=== PATIENT | female | born 1950 | race Caucasian/White ===

== ENCOUNTER 2017-01-10 08:36 | Day surgery (SDC) | payer OTHER ==
[2017-01-09 15:26] VITALS: BMI 30.3
[2017-01-10 09:14] LABS: INR 1.04 (0.82-1.09); PROTHROMBIN TIME (PATIENT) 11.4 SEC (9.98-11.88)
[2017-01-10 09:24] VITALS: TEMP 98.2
[2017-01-10 14:38] VITALS: BP 163/75; PULSE 70
--- NOTE | 2017-01-23 11:42 | PATH ---
Surgical Pathology Report Patient Name: FRANDY COLVIN [facility]. Rec. #: [id number] /Age/Gender: 1950 (Age: 66) / F Account: [id number] Location: RADIOLOGY Taken: 01/10/2017 Received: 01/10/2017 Reported: 01/23/2017 Physicians: Chavez Johnson M.D. Specimen(s) Received RIGHT LUNG CORE BIOPSY Clinical History 66 yo female with multiple large lung masses Final Diagnosis LUNG, RIGHT LOWER LOBE, CT GUIDED CORE BIOPSY: DENSE LYMPHOID INFILTRATE IN FIBROTIC BACKGROUND (SEE COMMENT). Comment: The biopsy shows dense lymphoid infiltrate in fibrotic background along with a fragment of lung parenchyma. The lymphocytes are predominantly small. The findings are suspicious for a lymphoproliferative process involving the lung; however, definitive B-cell clonality could not be proven. Additional tissue sampling with wedge biopsy would be beneficial to establish the diagnosis. Immunohistochemical stains for CD3 and CD20 show the lymphoid cells comprised of a mixed population of T- and B- cells with a slight predominance of CD3+T-cells. Additional immunohistochemical stains show the following: PAX5 highlights B-cells, CD5, CD43 and BCL-2 highlight T-cells. Staining for CD10, BCL-6 and CD21 shows scant focal positivity suggestive of portions of germinal center; however, the tissue is largely exhausted at this levels. A stain for Cyclin-D1 is negative on lymphocytes. A stain for Ae1/Ae3 keratin highlights focal pulmonary epithelial cells. In situ hybridization for Campti and Lambda light chains was not conclusive. B-cell gene rearrangement analysis was attempted at [place], [place] ([id number]); however, B-cell clonality could not be proven; the material was largely exhausted. This case was also seen in consultation with hematopathology service at [place], [place] ([id number], Dr. Mendiola); the consultants opinion was "limited specimen with no definite evidence of lymphoma". Immunohistochemical stains for CD3, CD20 and Ae1/Ae3 more performed and interpreted at [facility]; additional immunohistochemical stains for PAX5, CD5, CD43, BCL2, BCL6, CD10, CD21, and Cyclin-D1 were performed and interpreted at [place], [place] ([id number]). This case was initially discussed with Dr. Lama. Electronically Signed Jose Cutler M.D. Gross Description Received in formalin labeled "right lung biopsy" are 5 orellana, cylindrical portions of soft tissue ranging from 0.5-1.9 cm in length and averaging 0.1 cm in diameter. The specimens are submitted in toto in one cassette. 01/10/201701/10/2017
== END 2017-01-10 14:35 | disposition home or self-care (01) ==
LOC: JRADIR 08:36
PROVIDERS: ATTEND Internal Medicine Pulmonary Disease
PROC: BB24YZZ Computerized Tomography (CT Scan) of Bilateral Lungs using Other Contrast (ICD-10-PCS; principal; 2017-01-10)
PROC: 0BBF3ZX Excision of Right Lower Lung Lobe, Percutaneous Approach, Diagnostic (ICD-10-PCS; 2017-01-10)
DX: D38.1 Neoplasm of uncertain behavior of trachea, bronchus and lung (principal)
CPT/HCPCS: 36415; 71020-TC; 77012-TC; 85610; 88305-TC; 88341-TC; 88342-TC

== ENCOUNTER 2017-03-06 06:04 | Inpatient (IN) | payer OTHER ==
[2017-03-01 13:50] VITALS: BMI 31.1
[2017-03-06] MEDS ORDERED: PROPOFOL 20 ML ONE (07:13)
[2017-03-06] MEDS ORDERED: MIDAZOLAM HCL 2 MG/2 ML SINGLE DOSE VIAL ONE (07:13)
[2017-03-06] MEDS ORDERED: ROCURONIUM BROMIDE 50 MG/5 ML VIAL ONE (07:13)
[2017-03-06] MEDS ORDERED: LIDOCAINE HCL/PF 2% SDV 5ML VIAL ONE (07:29)
[2017-03-06] MEDS ORDERED: ceFAZolin SODIUM 1 GM VIAL ONE (07:55)
[2017-03-06] MEDS ORDERED: ceFAZolin SODIUM 1 GM VIAL IVPB ONE (08:05)
[2017-03-06] MEDS ORDERED: BUPIVACAINE HCL/PF 0.25% (2.5MG/ML) 10 ML VIAL ONE ×2 (08:05→08:09)
[2017-03-06] MEDS ORDERED: DEXAMETHASONE SOD PHOSPHATE 4 MG/1 ML VIAL ONE (08:44)
[2017-03-06] MEDS ORDERED: LIDOCAINE 1%/EPI 1:100000 (50 ML MULTI DOSE VIAL) INF ONE ×2 (08:47)
[2017-03-06] MEDS ORDERED: BUPIVACAINE HCL/PF 0.25% (2.5MG/ML) 10 ML VIAL IJ ONE ×2 (08:47)
[2017-03-06] MEDS ORDERED: ACETAMINOPHEN INJECTION 100 ML IVPB ONE (09:05)
[2017-03-06] MEDS ORDERED: PHENYLEPHRINE HCL 10 MG/1 ML SINGLE DOSE VIAL ONE (09:13)
[2017-03-06] MEDS ORDERED: GLYCOPYRROLATE 0.2 MG/1 ML VIAL ONE (09:53)
[2017-03-06] MEDS ORDERED: NEOSTIGMINE METHYLSULFATE 0.5 MG/ML - 10 ML MDV ONE (09:53)
[2017-03-06] MEDS ORDERED: PROMETHAZINE HCL 25 MG/1 ML VIAL IVPB PRN (10:32)
[2017-03-06] MEDS ORDERED: ONDANSETRON 4 MG/2 ML VIAL IVPUSH PRN (10:32)
[2017-03-06] MEDS ORDERED: DEXAMETHASONE SOD PHOSPHATE 4 MG/1 ML VIAL IVPUSH PRN (10:32)
[2017-03-06] MEDS ORDERED: LACTATED RINGERS SOLUTION 1,000 ML IV SCH ×2 (10:45→19:39)
[2017-03-06] MEDS ORDERED: HYDROmorphone *PCA* 10MG/50ML DISP.SYRIN PCA SCH (10:45)
[2017-03-06] MEDS ORDERED: HYDROmorphone *PCA* 10MG/50ML DISP.SYRIN PCA ONE (11:00)
--- NOTE | 2017-03-06 11:54 | OP ---
Operative Note - Note: Operative Date: 03/06/17 Pre-Operative Diagnosis: Lung nodules Operation: Bronchoscopy, right vats, pneumolysis, wedge resection, intercostal nerve block Findings: Bronchoscopy: Normal anatomy; Thoracoscopy: adhesions of right upper lobe to chest, right lower lobe to diaphragm, multiple central nodules--largest in right lower lobe samples with wedge resection. Post-Operative Diagnosis: Same as Pre-op Surgeon: Liam López [employer] Worker: Dimas Lincoln Anesthesiologist/MECHANICAL OXIDIZER: David Anders Anesthesia: General Specimens Removed: right lower lobe wedge Estimated Blood Loss (mls): 20 Drains & Tubes with Location: chest tube Operative Report Dictated: Yes
--- NOTE | 2017-03-06 15:38 | OPR ---
Patient Name: Yakelin Herndon MR#: [id number] Procedure Date: 03/06/2017 Preoperative Diagnosis: Right lung nodules Postoperative Diagnosis: same Procedure: 1. Bronchoscopy; 2. Right VATS pneumolysis; 3. Right lower lobe wedge resection; 4. Intercostal nerve block. Indication: Diagnosis. Surgeon(s): Liam López MD Cosurgeon: Dimas Lincoln MD Internet Consultant Surgeon: na Anesthesia: General with intercostal nerve black. Findings: 1. Bronchoscopy: Normal; 2. VATS: RUL adherent to chest wall; RLL adherent to diaphragm; Large deep nodules throughout lung. Specimens Sent: RLL wedge for frozen/path/culture; Right bronchial washings for culture. Complications: none Drains / Tubes / Catheters: 1 chest tubes. Hardware / Implants: na Blood / Fluid Losses: 20cc. Post-Operative Condition: Hemodynamically stable in transfer to PACU Indications: This patient is a 66 year-old female smoker who presented with dyspnea on exertion and multiple pulmonary nodules. Initial CT guided core biopsy suggested a lymphoproliferative process. She was referred by Dr. Partida for diagnostic resection. After discussion and consideration of risks, benefits , and alternatives with the patient she agreed to the procedure. The patient understood the risks and benefits. Details of Procedure: The patient was taken into the operating room and placed supine on the table. She was monitored with pulse oximetry and blood pressure monitoring. She was given sedation and then intubated. Preoperative antibiotics were given. I then performed a bronchoscopy. Findings are listed above. A double-lumen was then placed. Subcutaneous heparin and antibiotics were given. Next we positioned. Her right chest was prepared and draped in standard surgical fashion. The first port was placed in the anterior axillary line 6th intercostal space. A posterior and anterior access port were then created. A pneumolysis was performed of a RUL adhesion to the chest wall and the RLL adhesion to the diaphragm. We then identified several lesions. All required very deep wedge resections. The largest lesion was in the right lower lobe. We divided the inferior pulmonary ligament and then prepared to wedge resect using the black- load stapler. We then removed the lesion with a bag. We obtained hemostasis. The chest was irrigated with warm water. There was no air-leak on inflation of the lung. We then performed an intercostal nerve block using lidocaine and bupivicane from the 3rd interspace to the 8th interspace. Hemostasis was then checked again. Next we placed a chest tube and secured it. The incisions were closed and dressings were placed. She was extubated and transferred to the PACU in hemodynamically stable condition. Dr. Lincoln was present throughout the procedure and was necessary as there was no qualified help available. He was instrumental in organizing the placement of ports and assisting during the wedge -resection and we were both available postoperatively.
--- NOTE | 2017-03-06 16:07 | CONSULT ---
Consultation: REQUESTING PROVIDER: CONSULT REQUEST: We have been asked to medically evaluate this patient for ICU care PCP: Dr. Castano Pulmonary: Dr. Kirk Heme/Onco: Dr. Partida HISTORY OF PRESENT ILLNESS: Patient is a 66 year old female with significant past medical hx of HTN, DM, HLD , recently diagnosed with lung mass presented to the ED for an elective right lower lobe wedge resection today. Patient was transferred from the OR for further care in the ICU. Patient has mild pain at the chest tube insertion site , controlled with MOLDED GOODS CONTROLS OPERATOR hydromorphone and now hemodynamically stable. As per the patient, she had a mechanical fall in December, for which she had a chest xray done to r/o rib fracture, was found to have lung nodule, CT chest was done on 01/05/17 which showed Multiple masses and nodules in the lung, largest seen in the right lung base measuring 3.9 x 2.7 cm with a spiculated margin; Right paratracheal lymph node measuring 1.3 x 1 cm. Patient has always been asymptomatic. Denies chest pain, sob, palpitations, cough, abdominal pain, nausea or vomiting. Bowel/Bladder habit normal. Sleep/Appetite normal. Past medical hx: HTN, DM, HLD, recently diagnosed with lung mass Allergies: Halothane, Az[place], sulfite Surgical hx: Thyroidectomy Social: Quit smoking 3 months ago, smoked for over 40 years, 1 Pack per day Alcohol occasional; Drugs-denies REVIEW OF SYSTEMS: CONSTITUTIONAL: Absent: fever, chills, diaphoresis, generalized weakness, malaise, loss of appetite, weight change HEENT: Absent: rhinorrhea, nasal congestion, throat pain, throat swelling, difficulty swallowing, mouth swelling, ear pain, eye pain, visual changes CARDIOVASCULAR: Absent: chest pain, syncope, palpitations, irregular heart rate, lightheadedness , peripheral edema RESPIRATORY: Absent: cough, shortness of breath, dyspnea with exertion, orthopnea, wheezing, stridor, hemoptysis GASTROINTESTINAL: Absent: abdominal pain, abdominal distension, nausea, vomiting, diarrhea, constipation, melena, hematochezia GENITOURINARY: Absent: dysuria, frequency, urgency, hesitancy, hematuria, flank pain, genital pain MUSCULOSKELETAL: Absent: myalgia, arthralgia, joint swelling, back pain, neck pain SKIN: Absent: rash, itching, pallor HEMATOLOGIC/IMMUNOLOGIC: Absent: easy bleeding, easy bruising, lymphadenopathy, frequent infections ENDOCRINE: Absent: unexplained weight gain, unexplained weight loss, heat intolerance, cold intolerance NEUROLOGIC: Absent: headache, focal weakness or paresthesias, dizziness, unsteady gait, seizure, mental status changes, bladder or bowel incontinence PSYCHIATRIC: Absent: anxiety, depression, suicidal or homicidal ideation, hallucinations. PHYSICAL EXAMINATION Vital Signs - 24 hr 03/06/17 03/06/17 03/06/17 06:35 06:36 10:27 Temperature 98.3 F 97.7 F Pulse Rate 62 69 Respiratory 20 22 Rate Blood Pressure 112/63 126/83 O2 Sat by Pulse 97 100 Oximetry (%) 03/06/17 03/06/17 03/06/17 10:45 11:00 11:15 Temperature Pulse Rate 62 61 61 Respiratory 17 17 14 Rate Blood Pressure 129/63 122/58 124/63 O2 Sat by Pulse 98 98 99 Oximetry (%) 03/06/17 03/06/17 03/06/17 11:30 11:31 11:45 Temperature Pulse Rate 61 61 62 Respiratory 14 14 17 Rate Blood Pressure 118/56 118/56 119/57 O2 Sat by Pulse 99 99 Oximetry (%) 03/06/17 03/06/17 03/06/17 12:00 12:15 12:30 Temperature Pulse Rate 60 60 59 L Respiratory 16 15 11 L Rate Blood Pressure 116/57 113/57 115/57 O2 Sat by Pulse 99 100 98 Oximetry (%) 03/06/17 03/06/17 03/06/17 12:45 13:00 13:15 Temperature Pulse Rate 60 62 62 Respiratory 10 L 18 16 Rate Blood Pressure 110/56 108/54 112/53 O2 Sat by Pulse 98 98 98 Oximetry (%) 03/06/17 03/06/17 03/06/17 13:30 13:45 14:00 Temperature Pulse Rate 67 67 67 Respiratory 20 17 20 Rate Blood Pressure 120/58 118/60 120/61 O2 Sat by Pulse 98 99 99 Oximetry (%) 03/06/17 03/06/17 14:15 14:30 Temperature 97.5 F L Pulse Rate 65 60 Respiratory 20 18 Rate Blood Pressure 118/54 122/60 O2 Sat by Pulse 99 Oximetry (%) GENERAL: Patient is comfortably laying in bed, Awake, alert, and fully oriented , in no acute distress, right chest tube in place, arce in place. HEAD: Normal with no signs of trauma. EYES: Pupils equal, round and reactive to light, extraocular movements intact, sclera anicteric, conjunctiva clear. No lid lag. EARS, NOSE, THROAT: Ears normal. Moist mucous membranes. NECK: Supple. LUNGS: Poor inspiratory effort, Decreased breath sounds on the right; No wheezes , and no crackles. No accessory muscle use. HEART: Regular rate and rhythm, normal S1 and S2 without murmur. ABDOMEN: Soft, nontender, not distended, normoactive bowel sounds, no guarding, no rebound, no masses. No hepatomegaly or splenomegaly. MUSCULOSKELETAL: Normal range of motion at all joints. No bony deformities or tenderness. No CVA tenderness. UPPER EXTREMITIES: 2+ pulses, warm, well-perfused. No cyanosis. No clubbing. Cap refill <2 seconds. No peripheral edema. LOWER EXTREMITIES: 2+ pulses, warm, well-perfused. No calf tenderness. No peripheral edema. NEUROLOGICAL: No facial droop, Cranial nerves II-XII intact, reflexes normal, Normal speech. Gait not observed. PSYCHIATRIC: Cooperative. Good eye contact. Appropriate mood and affect. SKIN: Warm, dry, normal turgor, no rashes or lesions noted. Laboratory Results - last 24 hr 03/06/17 03/06/17 06:47 13:17 POC Glucometer 124 165 Active Medications Generic Name Dose Route Start Last Admin Trade Name Freq PRN Reason Stop Dose Admin Dexamethasone Sodium Phosphate 4 mg 03/06/17 10:32 Decadron Injection - IVPUSH ONCE PRN NAUSEA AND/OR VOMITING Diphenhydramine HCl 12.5 mg 03/06/17 10:32 Benadryl Injection - IVPUSH ONCE PRN FOR ITCHING Docusate Sodium 100 mg 03/06/17 14:00 Colace - PO TID MAXIMINO Heparin Sodium (Porcine) 5,000 unit 03/06/17 14:00 Heparin - SQ TID MAXIMINO Hydromorphone HCl 0 mg 03/06/17 10:45 03/06/17 11:31 Dilaudid Glaze Handler - MOLDED GOODS CONTROLS OPERATOR 03/13/17 10:33 10 mg MOLDED GOODS CONTROLS OPERATOR MAXIMINO Administration Protocol Lactated Ringer's 1,000 mls @ 125 mls/hr 03/06/17 10:45 Lactated Ringers Solution IV ASDIR MAXIMINO Ipratropium [place] 1 amp 03/06/17 14:00 Atrovent 0.02% Nebulizer - NEB TIDR MAXIMINO Ondansetron HCl 4 mg 03/06/17 10:32 Zofran Injection IVPUSH 03/06/17 22:33 Q4H PRN NAUSEA AND/OR VOMITING Promethazine HCl 12.5 mg 03/06/17 10:32 Phenergan Injection - IVPB Q6H PRN NAUSEA AND/OR VOMITING Senna 1 tab 03/06/17 22:00 Senna - PO HS [facility] ASSESSMENT/PLAN: Patient is a 66 year old female with significant past medical hx of HTN, DM, HLD , recently diagnosed with lung mass presented to the ED for an elective right lower lobe wedge resection today. Pulmonary Right lung nodule- r/o malignancy s/p Bronchoscopy, Right VATS pneumolysis, Right lower lobe wedge resection POD Day O Chest tube in place, monitor output Incentive spirometer as tolerated Albuterol PRN Ipratropium 1amp TID [facility] Cardiology Hypertension-controlled Resume home meds once she can take orally: Amlodipine/Valsartan Hyperlipidemia Continue statin once able to tolerate orally Endocrinology DM-HbA1c pending Insulin sliding scale Finger stick glucose monitoring Watch for hypoglycemic episodes Hypothyroidism s/p thyroidectomy Continue Levothyroxine once able to tolerate PO FEN IV LR @ 125 mls/hr Electrolytes to be repeated in AM NPO for now Prophylaxis For DVT: On Heparin sq For GI: Not indicated Code status: Full code Illness, Investigation and Plan of care explained to the patient and her . They verbalized understanding. Case discussed with Dr. López. Dispo: We will continue to follow the patient. Thank you for this consultative opportunity. Visit type - Emergency Visit Emergency Visit: Yes ED Registration Date: 03/06/17 Care time: The patient presented to the Emergency Department on the above date and was hospitalized for further evaluation of their emergent condition. - New Patient This patient is new to me today: Yes Date on this admission: 03/06/17 - Critical Care Critical Care patient: Yes Total Critical Care Time (in minutes): 35 Critical Care Statement: The care of this patient involved high complexity decision making to prevent further life threatening deterioration of the patient 's condition and/or to evaluate & treat vital organ system(s) failure or risk of failure.
[2017-03-06] MEDS: DOCUSATE SODIUM 100 MG CAPSULE (FP) PO SCH ×3 (16:56→21:28)
[2017-03-06] MEDS: HEPARIN NA (PORCINE) 5,000 UNITS/ML 1ML VIAL SQ SCH ×2 (16:56→21:22)
[2017-03-06] MEDS: IPRATROPIUM BR 0.02% 0.5 MG/2.5 ML VIAL.NEB. NEB SCH ×2 (16:57→22:30)
--- NOTE | 2017-03-06 18:44 | HP ---
Admitting History and Physical - Primary Care Physician PCP: Demetri Castano - Admission Chief Complaint: LUNG BIOPSY History of Present Illness: 66 Y/O FEMALE WITH HISTORY OF TOBACCO USE HERE FOR WEDGE LUNG BIOPSY WITH DR COLVIN. PATIENT HAS HISTORY OF HTN,LIPIDEMIA,OBESITY, RENAL CYSTS. History Source: Patient, Medical Record - Past Medical History Cardiovascular: Yes: HTN - Smoking History Smoking history: Current every day smoker Have you smoked in the past 12 months: Yes Aproximately how many cigarettes per day: 1 If you are a former smoker, when did you quit?: 01/05/17 - Alcohol/Substance Use Hx Alcohol Use: No Home Medications - Allergies Allergies/Adverse Reactions: Allergies Allergy/AdvReac Type Severity Reaction Status Date / Time halothane [Halothane] Allergy Unknown Verified 03/06/17 06:39 itraconazole [From Sporanox] Allergy Rash Verified 03/06/17 06:39 sulfite Allergy pass out Verified 03/06/17 06:39 - Home Medications Home Medications: Ambulatory Orders Atenolol [Tenormin -] 100 mg PO DAILY 03/31/14 Metformin HCl [Glucophage -] 500 mg PO HS 03/31/14 Alprazolam [Xanax] 0.5 mg PO ONCE PRN 01/09/17 Amlodipine/Valsartan/Hcthiazid [Exforge Hct 5-160-25 mg Tab] 1 each PO DAILY Atorvastatin Ca [Lipitor] 40 mg PO HS 01/09/17 Bupropion HCl [Wellbutrin -] 150 mg PO BID 01/09/17 Levothyroxine [Synthroid -] 150 mcg PO DAILY 01/09/17 Cyclosporine [Restasis] 1 each OP DAILY 03/01/17 Tiotropium Br/Olodaterol HCl [Stiolto Respimat Inhal [place]] 2 puff IH DAILY 04/09 Review of Systems - Review of Systems Constitutional: reports: Weakness Eyes: reports: No Symptoms HENT: reports: No Symptoms Neck: reports: No Symptoms Cardiovascular: reports: Shortness of Breath Respiratory: reports: Cough Gastrointestinal: reports: No Symptoms Genitourinary: reports: No Symptoms Musculoskeletal: reports: No Symptoms Integumentary: reports: No Symptoms Neurological: reports: No Symptoms Endocrine: reports: No Symptoms Hematology/Lymphatic: reports: No Symptoms Psychiatric: reports: No Symptoms Physical Examination Vital Signs: Vital Signs Temperature 98.8 F 03/06/17 16:52 Pulse Rate 69 03/06/17 16:52 Respiratory Rate 20 03/06/17 16:52 Blood Pressure 126/68 03/06/17 16:52 O2 Sat by Pulse Oximetry (%) 99 03/06/17 16:52 Findings/Remarks: S/P LUNG BIOPSY VATS Constitutional: Yes: Moderate Distress Eyes: Yes: WNL HENT: Yes: WNL Neck: Yes: WNL Cardiovascular: Yes: WNL Respiratory: Yes: On Nasal O2 Gastrointestinal: Yes: WNL Renal/: Yes: WNL Musculoskeletal: Yes: Muscle Weakness Extremities: Yes: WNL Edema: No Peripheral Pulses WNL: Yes Integumentary: Yes: WNL Wound/Incision: Yes: Clean/Dry Neurological: Yes: WNL ...Motor Strength: WNL Psychiatric: Yes: WNL Problem List - Problems (1) Hypertension Code(s): I10 - ESSENTIAL (PRIMARY) HYPERTENSION (2) Lung mass Code(s): R91.8 - OTHER NONSPECIFIC ABNORMAL FINDING OF LUNG FIELD (3) History of lung biopsy Code(s): Z98.890 - OTHER SPECIFIED POSTPROCEDURAL STATES (4) Tobacco use Code(s): Z72.0 - TOBACCO USE Assessment/Plan AWAIT BIOPSY RESULTS SMOKING CESSATION NICOTINE PATCH HTN CONTROL DVT PROPHYLAXIS FAMILY BEDSIDE INCENTIVE SPIROMETRY
[2017-03-06] MEDS ORDERED: ALBUTEROL SO4 0.083% IH SOL 2.5 MG/3 ML VIAL.NEB. NEB ONE (19:38)
--- NOTE | 2017-03-06 20:22 | CONSULT ---
Consult Consult Specialty:: Pulmonary Critical care Reason for Consultation:: Post VATS, RLL wedge resection - History Source History Provided By: Patient - Past Medical History Cardio/Vascular: Yes: HTN, Hyperlipdemia Renal/: Yes: Other (Renal cysts) Psych: Yes: Anxiety, Depression Endocrine: Yes: Diabetes Mellitus - Past Surgical History Additional Surgical History: thyroidectomy - Alcohol/Substance Use Hx Alcohol Use: No - Smoking History Smoking history: Current every day smoker Have you smoked in the past 12 months: Yes Aproximately how many cigarettes per day: 1 If you are a former smoker, when did you quit?: 01/05/17 Home Medications - Allergies Allergies/Adverse Reactions: Allergies Allergy/AdvReac Type Severity Reaction Status Date / Time halothane [Halothane] Allergy Unknown Verified 03/06/17 06:39 itraconazole [From Sporanox] Allergy Rash Verified 03/06/17 06:39 sulfite Allergy pass out Verified 03/06/17 06:39 - Home Medications Home Medications: Ambulatory Orders Atenolol [Tenormin -] 100 mg PO DAILY 03/31/14 Metformin HCl [Glucophage -] 500 mg PO HS 03/31/14 Alprazolam [Xanax] 0.5 mg PO ONCE PRN 01/09/17 Amlodipine/Valsartan/Hcthiazid [Exforge Hct 5-160-25 mg Tab] 1 each PO DAILY Atorvastatin Ca [Lipitor] 40 mg PO HS 01/09/17 Bupropion HCl [Wellbutrin -] 150 mg PO BID 01/09/17 Levothyroxine [Synthroid -] 150 mcg PO DAILY 01/09/17 Cyclosporine [Restasis] 1 each OP DAILY 03/01/17 Tiotropium Br/Olodaterol HCl [Stiolto Respimat Inhal [place]] 2 puff IH DAILY 04/09 Family Disease History - Family Disease History Family History: Unremarkable Review of Systems - Review of Systems Constitutional: reports: No Symptoms Eyes: reports: No Symptoms HENT: reports: No Symptoms Neck: reports: No Symptoms Cardiovascular: reports: No Symptoms Respiratory: reports: Cough Gastrointestinal: reports: No Symptoms Genitourinary: reports: No Symptoms Breasts: reports: No Symptoms Reported Integumentary: reports: No Symptoms Neurological: reports: No Symptoms Endocrine: reports: No Symptoms Hematology/Lymphatic: reports: No Symptoms Psychiatric: reports: Anxiety, Depression Physical Exam Vital Signs: Vital Signs Temperature 98.8 F 03/06/17 16:52 Pulse Rate 70 03/06/17 19:00 Respiratory Rate 25 H 03/06/17 19:00 Blood Pressure 129/60 03/06/17 19:00 O2 Sat by Pulse Oximetry (%) 99 03/06/17 16:52 Constitutional: Yes: Well Nourished, Calm, Obese Eyes: Yes: WNL HENT: Yes: WNL Neck: Yes: WNL, Supple, Trachea Midline Cardiovascular: Yes: Regular Rate and Rhythm, S1, S2 Respiratory: Yes: Regular, On Nasal O2, Other (coarse breath sounds Right lobed , chest tube to suction; draining serosang fluid) Gastrointestinal: Yes: WNL, Normal Bowel Sounds, Soft, Abdomen, Obese, Distention ...Rectal Exam: Yes: Deferred Renal/: Yes: Chopra Present Breast(s): Yes: WNL Musculoskeletal: Yes: WNL Extremities: Yes: WNL Edema: No Peripheral Pulses WNL: Yes Wound/Incision: Yes: Clean/Dry Neurological: Yes: Alert, Oriented ...Motor Strength: WNL Psychiatric: Yes: Alert, Oriented Labs: Intake & Output 03/06/17 03/06/17 03/06/17 07:59 15:59 23:59 Intake Total 1460 Output Total 1215 66 Balance 245 -66 Laboratory Last Values POC Glucometer 165 UNITS (()) 03/06/17 13:17 Current Medications Generic Name Dose Route Start Last Admin Trade Name Freq PRN Reason Stop Dose Admin Dexamethasone Sodium Phosphate 4 mg 03/06/17 10:32 Decadron Injection - IVPUSH ONCE PRN NAUSEA AND/OR VOMITING Diphenhydramine HCl 12.5 mg 03/06/17 10:32 Benadryl Injection - IVPUSH ONCE PRN FOR ITCHING Docusate Sodium 100 mg 03/06/17 22:00 03/06/17 21:28 Colace - PO Not Given TID [facility] Heparin Sodium (Porcine) 5,000 unit 03/06/17 14:00 03/06/17 21:22 Heparin - SQ 5,000 unit TID [facility] Administration Hydromorphone HCl 0 mg 03/06/17 10:45 03/06/17 11:31 Dilaudid Locomotive Crane Engineer - PAPER COLORER 03/13/17 10:33 10 mg PAPER COLORER MAXIMINO Administration Protocol Lactated Ringer's 1,000 mls @ 83 mls/hr 03/06/17 19:39 03/06/17 19:45 Lactated Ringers Solution IV 83 mls/hr ASDIR MAXIMINO Administration Insulin Aspart 0 vial 03/06/17 22:00 03/06/17 21:23 Novolog Vial Sliding Scale - SQ Not Given ACHS MAXIMINO Protocol Ipratropium [place] 1 amp 03/06/17 14:00 03/06/17 16:57 Atrovent 0.02% Nebulizer - NEB Not Given TIDR MAXIMINO Ondansetron HCl 4 mg 03/06/17 10:32 Zofran Injection IVPUSH 03/06/17 22:33 Q4H PRN NAUSEA AND/OR VOMITING Promethazine HCl 12.5 mg 03/06/17 10:32 Phenergan Injection - IVPB Q6H PRN NAUSEA AND/OR VOMITING Senna 1 tab 03/06/17 22:00 03/06/17 21:28 Senna - PO Not Given HS MAXIMINO Imaging - Results Chest X-ray: Report Reviewed, Image Reviewed (Right lobe chest tube, no evidence of pneumothorax) Problem List - Problems (1) History of lung biopsy Code(s): Z98.890 - OTHER SPECIFIED POSTPROCEDURAL STATES (2) Lung mass Code(s): R91.8 - OTHER NONSPECIFIC ABNORMAL FINDING OF LUNG FIELD (3) Tobacco use Code(s): Z72.0 - TOBACCO USE (4) Blurry vision, bilateral Code(s): H53.8 - OTHER VISUAL DISTURBANCES (5) Hypertension Code(s): I10 - ESSENTIAL (PRIMARY) HYPERTENSION Assessment/Plan Ms. Herndon is a 66 y.o woman with newly diagnosed lung mass who is POD 0 for elective right lobe wedge resection; admitted to ICU for post-operative observation and care. -supplemental O2 for goal sat >92% -chest tube to 20cm suction -IS hourly, early ambulation -pain management with hydromorphone PAPER COLORER; pain currently well-controlled -fingersticks, SSI -bowel reg -continue home meds (statin, wellbutrin, amlodipine, valsartan) -sleep hygiene XIN Garza Critical Care Time/MDM Note Total Critical Care Time: 36 Critical Care Statement: The care of this patient involved high complexity decision making to prevent further life threatening deterioration of the patient 's condition and/or to evaluate & treat vital organ system(s) failure or risk of failure.
[2017-03-06] MEDS ORDERED: HEPARIN NA (PORCINE) 5,000 UNITS/ML 1ML VIAL ONE (21:15)
[2017-03-06] MEDS: INSULIN SLIDING SCALE (NOVOLOG) 1 VIAL SQ SCH (21:23)
[2017-03-06] MEDS ORDERED: SENNOSIDES 8.6MG TABLET (FP) PO SCH ×2 (22:00)
[2017-03-07] MEDS: HEPARIN NA (PORCINE) 5,000 UNITS/ML 1ML VIAL SQ SCH ×3 (05:27→21:15)
[2017-03-07] MEDS: DOCUSATE SODIUM 100 MG CAPSULE (FP) PO SCH ×3 (05:27→21:15)
[2017-03-07] MEDS ORDERED: IPRATROPIUM BR 0.02% 0.5 MG/2.5 ML VIAL.NEB. NEB SCH (06:00)
[2017-03-07] MEDS: INSULIN SLIDING SCALE (NOVOLOG) 1 VIAL SQ SCH ×4 (06:29→21:18)
[2017-03-07 06:31] LABS: MCH 21.1 pg (25.7-33.7); MCHC 32.4 g/dl (32.0-36.0); MEAN CELL VOLUME 65.2 fl (80-96); MEAN PLT VOLUME 9.8 fl (7.5-11.1); PLATELET COUNT 173 K/MM3 (134-434); RDW 15.6 % (11.6-15.6); WHITE BLOOD COUNT 10.6 K/mm3 (4.0-10.0)
[2017-03-07 07:06] LABS: ALBUMIN 3.2 g/dl (3.4-5.0); ANION GAP 7 (8-16); CALCIUM 8.5 mg/dL (8.5-10.1); CO2 32 mmol/L (21-32); CREATININE 0.7 mg/dL (0.55-1.02); GLUCOSE,RANDOM 120 mg/dL (74-106); MAGNESIUM 1.7 mg/dL (1.8-2.4); PHOSPHOROUS 3.9 mg/dL (2.5-4.9); SGOT/AST 23 U/L (15-37); SGPT/ALT 30 U/L (12-78)
[2017-03-07 07:07] LABS: ALK PHOS 76 U/L (45-117); BILIRUBIN,TOTAL 1.4 mg/dL (0.2-1.0); TOT PROT 6.3 g/dl (6.4-8.2)
[2017-03-07] MEDS ORDERED: LEVOTHYROXINE NA 75 MCG TABLET (FP) PO SCH (08:45)
[2017-03-07] MEDS ORDERED: MAGNESIUM OXIDE 400 MG TABLET (FP) PO ONE (09:00)
--- NOTE | 2017-03-07 09:05 | PN ---
Progress Note (short form) - Note Progress Note: Post op day#1.S/p Right VATS with wedge resection of RLL and lysis of adhesions under GA uneventful.P 70.BP128/65 and Spo2 (85 on O2 3L NC.Patient stable on Dilaudid FOOD BEVERAGE ATTENDANT c/o Pain score of 3-4/10.Will Dc FOOD BEVERAGE ATTENDANT and put patient PRN pain medication.No any anesthesia related problem.Patient DC from the anesthesia care.
[2017-03-07] MEDS ORDERED: ACETAMINOPHEN 500 MG TABLET (FP) PO PRN (09:07)
[2017-03-07] MEDS ORDERED: POTASSIUM CHLORIDE TABS 20 MEQ TABLET.ER (FP) PO ONE (09:10)
[2017-03-07 09:28] LABS: HYPOCHROMIA 1+; MICROCYTOSIS FEW; TEAR DROP CELLS RARE
[2017-03-07] MEDS ORDERED: NAPH,MB-DB/K PH,MBDB POWDER PACKET PO SCH ×2 (10:00→22:00)
[2017-03-07] MEDS ORDERED: ATENOLOL 50 MG TABLET (FP) PO SCH (10:00)
[2017-03-07] MEDS ORDERED: amLODIPine BESYLATE 5 MG TABLET (FP) PO SCH (10:00)
[2017-03-07] MEDS ORDERED: VALSARTAN 160 MG TABLET (UD) PO SCH (10:00)
[2017-03-07] MEDS ORDERED: buPROPion HCL 75 MG TABLET PO SCH (10:00)
--- NOTE | 2017-03-07 11:26 | PN ---
Progress Note (short form) - Note Progress Note: Oncology Note: Ms. Herndon is a 66 y.o woman with newly diagnosed lung mass and multiple lung masses, who intially inderwent a needle biopsy and no diagnosis was made, lymphoid aggregates present , but no definitive diagnosis made, Patient now admitted for elective right lobe wedge resection/VATS on 03/06/2017. Patient seen and examined. She is up in a chair , with no breathing difficulty. Chest tube still in. O/E: sitting up in the chair in no acute distress No LAD in the neck Cor: RRR Lungs: + chest tube present. No LE swelling seen AAOx3 Temp Pulse Resp BP Pulse Ox 98.9 F 64 21 130/59 100 03/07/17 10:00 03/07/17 10:00 03/07/17 10:00 03/07/17 10:00 03/07/17 08:00 CBC, BMP 03/07/17 05:15 03/07/17 05:15 Current Medications Generic Name Dose Route Start Last Admin Trade Name Freq PRN Reason Stop Dose Admin Acetaminophen 1,000 mg 03/07/17 09:07 Tylenol - PO Q6H PRN FEVER OR PAIN Amlodipine Besylate 5 mg 03/07/17 10:00 03/07/17 10:16 Norvasc - PO 5 mg DAILY [facility] Administration Atenolol 100 mg 03/07/17 10:00 03/07/17 10:16 Tenormin - PO 100 mg DAILY [facility] Administration Atorvastatin Calcium 40 mg 03/07/17 22:00 Lipitor - PO HS MAXIMINO Bupropion HCl 150 mg 03/07/17 10:00 03/07/17 10:17 Wellbutrin - PO 150 mg BID [facility] Administration Dexamethasone Sodium Phosphate 4 mg 03/06/17 10:32 Decadron Injection - IVPUSH ONCE PRN NAUSEA AND/OR VOMITING Diphenhydramine HCl 12.5 mg 03/06/17 10:32 Benadryl Injection - IVPUSH ONCE PRN FOR ITCHING Docusate Sodium 100 mg 03/06/17 22:00 03/07/17 05:27 Colace - PO 100 mg TID [facility]INO Administration Heparin Sodium (Porcine) 5,000 unit 03/06/17 14:00 03/07/17 05:27 Heparin - SQ 5,000 unit TID [facility] Administration Hydromorphone HCl 1 mg 03/07/17 09:06 Dilaudid Injection - IVPUSH 03/08/17 09:05 Q4H PRN PAIN Insulin Aspart 0 vial 03/06/17 22:00 03/07/17 10:43 Novolog Vial Sliding Scale - SQ Not Given ACHS MAXIMINO Protocol Ipratropium [place] 1 amp 03/07/17 06:00 03/07/17 06:30 Atrovent 0.02% Nebulizer - NEB 1 amp TIDR [facility] Administration Levothyroxine Sodium 150 mcg 03/07/17 08:45 03/07/17 10:15 Synthroid - PO 150 mcg DAILY@0700 [facility] Administration Potassium Phos/Sodium Phos 1 packet 03/07/17 10:00 03/07/17 10:16 Phos-Nak Packet - PO 03/07/17 22:01 1 packet BID [facility] Administration Promethazine HCl 12.5 mg 03/06/17 10:32 Phenergan Injection - IVPB Q6H PRN NAUSEA AND/OR VOMITING Senna 1 tab 03/06/17 22:00 03/06/17 21:28 Senna - PO Not Given HS [facility]IMINO Valsartan 160 mg 03/07/17 10:00 03/07/17 10:16 Diovan - PO 160 mg DAILY [facility] Administration Ms. Herndon is a 66 y.o woman with newly diagnosed lung mass and multiple lung masses, who intially inderwent a needle biopsy and no diagnosis was made, lymphoid aggregates present , but no definitive diagnosis made, Patient now admitted for elective right lobe wedge resection/VATS on 03/06/2017. -will follow up on final pathology -post surgical care in the ICU appreciated -to be followed up in our office. -encouraged to continue smoking cessation
--- NOTE | 2017-03-07 12:02 | PN ---
Teaching Attending Note Name of Resident: Sabino Coronado ATTENDING PHYSICIAN STATEMENT I saw and evaluated the patient. I reviewed the resident's note and discussed the case with the resident. I agree with the resident's findings and plan as documented. SUBJECTIVE: Feels OK today. Some discomfort at the CT site. No air leak noted. CXR : CT intact / no PTX Intake & Output 03/04/17 03/05/17 03/06/17 03/07/17 23:59 23:59 23:59 23:59 Intake Total 1460 1476 Output Total 1781 944 Balance -321 532 Last Vital Signs Temp Pulse Resp BP Pulse Ox 98.9 F 68 24 132/59 100 03/07/17 10:00 03/07/17 10:00 03/07/17 10:00 03/07/17 10:00 03/07/17 08:00 Active Medications Acetaminophen (Tylenol -) 1,000 mg PO Q6H PRN PRN Reason: FEVER OR PAIN Amlodipine Besylate (Norvasc -) 5 mg PO DAILY [facility] Last Admin: 03/07/17 10:16 Dose: 5 mg Atenolol (Tenormin -) 100 mg PO DAILY [facility] Last Admin: 03/07/17 10:16 Dose: 100 mg Atorvastatin Calcium (Lipitor -) 40 mg PO HS [facility] Bupropion HCl (Wellbutrin -) 150 mg PO BID [facility] Last Admin: 03/07/17 10:17 Dose: 150 mg Dexamethasone Sodium Phosphate (Decadron Injection -) 4 mg IVPUSH ONCE PRN PRN Reason: NAUSEA AND/OR VOMITING Diphenhydramine HCl (Benadryl Injection -) 12.5 mg IVPUSH ONCE PRN PRN Reason: FOR ITCHING Docusate Sodium (Colace -) 100 mg PO TID [facility] Last Admin: 03/07/17 05:27 Dose: 100 mg Heparin Sodium (Porcine) (Heparin -) 5,000 unit SQ TID [facility] Last Admin: 03/07/17 05:27 Dose: 5,000 unit Hydromorphone HCl (Dilaudid Injection -) 1 mg IVPUSH Q4H PRN PRN Reason: PAIN Stop: 03/08/17 09:05 Insulin Aspart (Novolog Vial Sliding Scale -) 0 vial SQ ACHS [facility] PRN Reason: Protocol Last Admin: 03/07/17 10:43 Dose: Not Given Ipratropium [place] (Atrovent 0.02% Nebulizer -) 1 amp NEB TIDR [facility] Last Admin: 03/07/17 06:30 Dose: 1 amp Levothyroxine Sodium (Synthroid -) 150 mcg PO DAILY@0700 [facility] Last Admin: 03/07/17 10:15 Dose: 150 mcg Potassium Phos/Sodium Phos (Phos-Nak Packet -) 1 packet PO BID [facility] Stop: 03/07/17 22:01 Last Admin: 03/07/17 10:16 Dose: 1 packet Promethazine HCl (Phenergan Injection -) 12.5 mg IVPB Q6H PRN PRN Reason: NAUSEA AND/OR VOMITING Senna (Senna -) 1 tab PO HS [facility] Last Admin: 03/06/17 21:28 Dose: Not Given Valsartan (Diovan -) 160 mg PO DAILY [facility] Last Admin: 03/07/17 10:16 Dose: 160 mg Constitutional: Yes: Awake and alert, NAD Eyes: Yes: WNL HENT: Yes: WNL Neck: Yes: WNL, Supple, Trachea Midline Cardiovascular: Yes: Regular Rate and Rhythm, S1, S2 Respiratory: Yes: Right CT, no air leak, few scattered basilar rhonchi, NC O2 Gastrointestinal: Yes: WNL, Normal Bowel Sounds, Soft, Abdomen, Obese, Distention ...Rectal Exam: Yes: Deferred Renal/: Yes: Chopra Present Breast(s): Yes: WNL Musculoskeletal: Yes: WNL Extremities: Yes: WNL Edema: No Peripheral Pulses WNL: Yes Wound/Incision: Yes: Clean/Dry Neurological: Yes: Alert, Oriented ...Motor Strength: WNL Psychiatric: Yes: Alert, Oriented Labs: Laboratory Results - last 24 hr 03/06/17 03/07/17 03/07/17 13:17 05:15 05:15 WBC 10.6 H RBC 5.32 H Hgb 11.3 Hct 34.7 MCV 65.2 L MCH 21.1 L MCHC 32.4 RDW 15.6 Plt Count 173 MPV 9.8 Nucleated RBC % No Result Required. Hypochromia 1+ Toxic Granulation No Result Required. Dohle Bodies No Result Required. Toyin Rods No Result Required. Platelet Estimate No Result Required. Poikilocytosis No Result Required. Basophilic Stippling 2+ Anisocytosis No Result Required. Microcytosis Few Tear Drop Cells Rare Ovalocytes No Result Required. Napier-Witt Bodies No Result Required. Lavinia Rings No Result Required. Acanthocytes (Spur) No Result Required. Morphology Comment No Result Required. Sodium 140 Potassium 3.6 Chloride 101 Carbon Dioxide 32 Anion Gap 7 L BUN 11 D Creatinine 0.7 D Creat Clearance w eGFR > 60 POC Glucometer 165 Random Glucose 120 H Hemoglobin A1c % Calcium 8.5 Phosphorus 3.9 Magnesium 1.7 L Total Bilirubin 1.4 H AST 23 D ALT 30 Alkaline Phosphatase 76 Total Protein 6.3 L Albumin 3.2 L 03/07/17 05:15 WBC RBC Hgb Hct MCV MCH MCHC RDW Plt Count MPV Nucleated RBC % Hypochromia Toxic Granulation Dohle Bodies Toyin Rods Platelet Estimate Poikilocytosis Basophilic Stippling Anisocytosis Microcytosis Tear Drop Cells Ovalocytes Napier-Witt Bodies Lavinia Rings Acanthocytes (Spur) Morphology Comment Sodium Potassium Chloride Carbon Dioxide Anion Gap BUN Creatinine Creat Clearance w eGFR POC Glucometer Random Glucose Hemoglobin A1c % 7.1 H Calcium Phosphorus Magnesium Total Bilirubin AST ALT Alkaline Phosphatase Total Protein Albumin Problem List - Problems (1) History of lung biopsy Code(s): Z98.890 - OTHER SPECIFIED POSTPROCEDURAL STATES (2) Lung mass Code(s): R91.8 - OTHER NONSPECIFIC ABNORMAL FINDING OF LUNG FIELD (3) Tobacco use Code(s): Z72.0 - TOBACCO USE (4) Blurry vision, bilateral Code(s): H53.8 - OTHER VISUAL DISTURBANCES (5) Hypertension Code(s): I10 - ESSENTIAL (PRIMARY) HYPERTENSION Assessment/Plan Incentive Spirometry O2 as needed Pain control OOB tp chair Glucose control Home meds Floor Dr Lama
[2017-03-07] MEDS ORDERED: HEPARIN NA (PORCINE) 5,000 UNITS/ML 1ML VIAL ONE (13:33)
--- NOTE | 2017-03-07 13:35 | PN ---
Progress Note, Physician History of Present Illness: patient seen and examined at bedside had pain overnight now feels better - Current Medication List Current Medications: Active Medications Acetaminophen (Tylenol -) 1,000 mg PO Q6H PRN PRN Reason: FEVER OR PAIN Amlodipine Besylate (Norvasc -) 5 mg PO DAILY [facility] Last Admin: 03/07/17 10:16 Dose: 5 mg Atenolol (Tenormin -) 100 mg PO DAILY [facility] Last Admin: 03/07/17 10:16 Dose: 100 mg Atorvastatin Calcium (Lipitor -) 40 mg PO [facility] Bupropion HCl (Wellbutrin -) 150 mg PO BID [facility] Last Admin: 03/07/17 10:17 Dose: 150 mg Dexamethasone Sodium Phosphate (Decadron Injection -) 4 mg IVPUSH ONCE PRN PRN Reason: NAUSEA AND/OR VOMITING Diphenhydramine HCl (Benadryl Injection -) 12.5 mg IVPUSH ONCE PRN PRN Reason: FOR ITCHING Docusate Sodium (Colace -) 100 mg PO TID [facility] Last Admin: 03/07/17 05:27 Dose: 100 mg Heparin Sodium (Porcine) (Heparin -) 5,000 unit SQ TID [facility] Last Admin: 03/07/17 05:27 Dose: 5,000 unit Hydromorphone HCl (Dilaudid Injection -) 1 mg IVPUSH Q4H PRN PRN Reason: PAIN Stop: 03/08/17 09:05 Insulin Aspart (Novolog Vial Sliding Scale -) 0 vial SQ [facility] PRN Reason: Protocol Last Admin: 03/07/17 10:43 Dose: Not Given Ipratropium [place] (Atrovent 0.02% Nebulizer -) 1 amp NEB TIDR [facility] Last Admin: 03/07/17 06:30 Dose: 1 amp Levothyroxine Sodium (Synthroid -) 150 mcg PO DAILY@0700 [facility] Last Admin: 03/07/17 10:15 Dose: 150 mcg Potassium Phos/Sodium Phos (Phos-Nak Packet -) 1 packet PO BID [facility] Stop: 03/07/17 22:01 Last Admin: 03/07/17 10:16 Dose: 1 packet Promethazine HCl (Phenergan Injection -) 12.5 mg IVPB Q6H PRN PRN Reason: NAUSEA AND/OR VOMITING Senna (Senna -) 1 tab PO HS [facility] Last Admin: 03/06/17 21:28 Dose: Not Given Valsartan (Diovan -) 160 mg PO DAILY [facility] Last Admin: 03/07/17 10:16 Dose: 160 mg - Objective Vital Signs: Vital Signs Temperature 98.3 F 03/07/17 12:00 Pulse Rate 62 03/07/17 12:00 Respiratory Rate 21 03/07/17 12:00 Blood Pressure 129/56 03/07/17 12:00 O2 Sat by Pulse Oximetry (%) 100 03/07/17 08:00 Constitutional: Yes: Well Nourished, No Distress, Calm Eyes: Yes: Conjunctiva Clear HENT: Yes: Atraumatic, Normocephalic Neck: Yes: Supple, Trachea Midline Cardiovascular: Yes: Regular Rate and Rhythm Respiratory: Yes: Other (CTA over left lung field. right side had some coarse breath sounds) Gastrointestinal: Yes: Normal Bowel Sounds, Soft Edema: No Neurological: Yes: Alert, Oriented Psychiatric: Yes: Alert, Oriented Labs: CBC, BMP 03/07/17 05:15 03/07/17 05:15 - ....Imaging Chest X-ray: Report Reviewed, Image Reviewed Assessment/Plan 66F with lung cancer s/p right VATS wedge resection Problem List: HTN DM anxiety hypothyroidism hyperlipidemia Lung cancer Plan: incentive spirometry stop IVF D/C arce out of bed to chair ambulate pain control diabetic [id number] insulin sliding scale and BGM-hold metformin while inpatient chest tube to waterseal and repeat CXR restar home meds atenolol valsartan HCTZ and amlodipine f/u pathology oncology consult appreciated-will follow up as outpatient d/c [employer] CXR in AM replete electrolytes-potassium magnesium and phosphorus HSQ/SCDs for DVT PPx CCTime 35 min Transfer to telemetry
[2017-03-07] MEDS: HYDROmorphone HCL CARPU-JECT 1 MG/1 ML DISP.SYRIN IVPUSH PRN (14:07)
[2017-03-07] MEDS ORDERED: PROMETHAZINE HCL 25 MG/1 ML VIAL IVPB PRN (14:08)
--- NOTE | 2017-03-07 16:35 | PN ---
Progress Note, Physician Chief Complaint: AWAKE ALERT FAMILY BEDSIDE C/O PAIN +BM +APPETITE - Current Medication List Current Medications: Active Medications Acetaminophen (Tylenol -) 1,000 mg PO Q6H PRN PRN Reason: FEVER OR PAIN Amlodipine Besylate (Norvasc -) 5 mg PO DAILY [facility] Atenolol (Tenormin -) 100 mg PO DAILY [facility] Atorvastatin Calcium (Lipitor -) 40 mg PO HS [facility] Bupropion HCl (Wellbutrin -) 150 mg PO BID [facility] Docusate Sodium (Colace -) 100 mg PO TID [facility] Heparin Sodium (Porcine) (Heparin -) 5,000 unit SQ TID [facility] Hydromorphone HCl (Dilaudid Injection -) 1 mg IVPUSH Q4H PRN PRN Reason: PAIN Stop: 03/08/17 09:05 Last Admin: 03/07/17 14:07 Dose: 1 mg Insulin Aspart (Novolog Vial Sliding Scale -) 1 vial SQ ACHS [facility] PRN Reason: Protocol Ipratropium [place] (Atrovent 0.02% Nebulizer -) 1 amp NEB TIDR [facility] Levothyroxine Sodium (Synthroid -) 150 mcg PO DAILY@0700 [facility] Potassium Phos/Sodium Phos (Phos-Nak Packet -) 1 packet PO BID [facility] Stop: 03/07/17 22:01 Promethazine HCl (Phenergan Injection -) 12.5 mg IVPB Q6H PRN PRN Reason: NAUSEA AND/OR VOMITING Senna (Senna -) 1 tab PO HS [facility] Valsartan (Diovan -) 160 mg PO DAILY [facility] - Objective Vital Signs: Vital Signs Temperature 98 F 03/07/17 15:10 Pulse Rate 62 03/07/17 15:10 Respiratory Rate 20 03/07/17 15:10 Blood Pressure 134/69 03/07/17 15:10 O2 Sat by Pulse Oximetry (%) 100 03/07/17 08:00 Constitutional: Yes: Mild Distress Eyes: Yes: WNL HENT: Yes: WNL Neck: Yes: WNL Cardiovascular: Yes: WNL Respiratory: Yes: On Nasal O2 Gastrointestinal: Yes: WNL Genitourinary: Yes: WNL Musculoskeletal: Yes: WNL Extremities: Yes: WNL Edema: No Peripheral Pulses WNL: Yes Integumentary: Yes: WNL Wound/Incision: Yes: Clean/Dry Neurological: Yes: WNL ...Motor Strength: WNL Psychiatric: Yes: WNL Labs: CBC, BMP 03/07/17 05:15 03/07/17 05:15 Problem List - Problems (1) Hypertension Code(s): I10 - ESSENTIAL (PRIMARY) HYPERTENSION (2) Lung mass Code(s): R91.8 - OTHER NONSPECIFIC ABNORMAL FINDING OF LUNG FIELD (3) History of lung biopsy Code(s): Z98.890 - OTHER SPECIFIED POSTPROCEDURAL STATES (4) Tobacco use Code(s): Z72.0 - TOBACCO USE Assessment/Plan IV DILAUDID STOOL SOFTNERS AWAIT BIOPSY RESULT PULMONARY F/U OOB TO CHAIR DVT PROPHYLAXIS MG+ REPLETED
[2017-03-07] MEDS: ATORVASTATIN CA 40 MG TABLET (FP) PO SCH (21:15)
[2017-03-07] MEDS: buPROPion HCL 75 MG TABLET PO SCH (21:16)
[2017-03-07] MEDS: SENNOSIDES 8.6MG TABLET (FP) PO SCH (21:16)
[2017-03-07] MEDS ORDERED: ATORVASTATIN CA 40 MG TABLET (FP) PO SCH (22:00)
[2017-03-07] MEDS: IPRATROPIUM BR 0.02% 0.5 MG/2.5 ML VIAL.NEB. NEB SCH (23:10)
[2017-03-08] MEDS ORDERED: ALPRAZolam 0.25 MG TABLET PO PRN (01:23)
[2017-03-08] MEDS: HYDROmorphone HCL CARPU-JECT 1 MG/1 ML DISP.SYRIN IVPUSH PRN (02:27)
[2017-03-08] MEDS: DOCUSATE SODIUM 100 MG CAPSULE (FP) PO SCH ×3 (06:34→22:38)
[2017-03-08] MEDS: HEPARIN NA (PORCINE) 5,000 UNITS/ML 1ML VIAL SQ SCH ×3 (06:34→22:38)
[2017-03-08] MEDS: LEVOTHYROXINE NA 75 MCG TABLET (FP) PO SCH (06:35)
[2017-03-08] MEDS: INSULIN SLIDING SCALE (NOVOLOG) 1 VIAL SQ SCH ×4 (06:35→22:43)
[2017-03-08] MEDS: IPRATROPIUM BR 0.02% 0.5 MG/2.5 ML VIAL.NEB. NEB SCH ×3 (06:36→22:10)
[2017-03-08 08:04] LABS: MCH 20.6 pg (25.7-33.7); MCHC 31.3 g/dl (32.0-36.0); MEAN CELL VOLUME 65.9 fl (80-96); MEAN PLT VOLUME 9.8 fl (7.5-11.1); PLATELET COUNT 154 K/MM3 (134-434); RDW 15.6 % (11.6-15.6); WHITE BLOOD COUNT 9.8 K/mm3 (4.0-10.0)
[2017-03-08 08:27] LABS: ALBUMIN 3.2 g/dl (3.4-5.0); ANION GAP 6 (8-16); CALCIUM 8.8 mg/dL (8.5-10.1); CO2 32 mmol/L (21-32); CREATININE 0.7 mg/dL (0.55-1.02); GLUCOSE,RANDOM 125 mg/dL (74-106); MAGNESIUM 2.3 mg/dL (1.8-2.4); PHOSPHOROUS 3.2 mg/dL (2.5-4.9); SGOT/AST 19 U/L (15-37); SGPT/ALT 24 U/L (12-78)
[2017-03-08 08:29] LABS: ALK PHOS 73 U/L (45-117); BILIRUBIN,TOTAL 1.2 mg/dL (0.2-1.0); TOT PROT 6.4 g/dl (6.4-8.2)
[2017-03-08] MEDS: ATENOLOL 50 MG TABLET (FP) PO SCH (10:09)
[2017-03-08] MEDS: amLODIPine BESYLATE 5 MG TABLET (FP) PO SCH (10:09)
[2017-03-08] MEDS: buPROPion HCL 75 MG TABLET PO SCH ×2 (10:09→22:37)
[2017-03-08] MEDS: VALSARTAN 160 MG TABLET (UD) PO SCH (10:10)
--- NOTE | 2017-03-08 10:29 | PN ---
Progress Note, Physician Chief Complaint: AWAKE ALERT FEELING BETTER ON 02 NC - Current Medication List Current Medications: Active Medications Acetaminophen (Tylenol -) 1,000 mg PO Q6H PRN PRN Reason: FEVER OR PAIN Alprazolam (Xanax -) 0.5 mg PO Q12H PRN Last Admin: 03/08/17 10:16 Dose: 0.5 mg Amlodipine Besylate (Norvasc -) 5 mg PO DAILY [facility] Last Admin: 03/08/17 10:09 Dose: 5 mg Atenolol (Tenormin -) 100 mg PO DAILY [facility] Last Admin: 03/08/17 10:09 Dose: 100 mg Atorvastatin Calcium (Lipitor -) 40 mg PO HS [facility] Last Admin: 03/07/17 21:15 Dose: 40 mg Bupropion HCl (Wellbutrin -) 150 mg PO BID [facility] Last Admin: 03/08/17 10:09 Dose: 150 mg Docusate Sodium (Colace -) 100 mg PO TID [facility] Last Admin: 03/08/17 06:34 Dose: 100 mg Heparin Sodium (Porcine) (Heparin -) 5,000 unit SQ TID [facility] Last Admin: 03/08/17 06:34 Dose: 5,000 unit Insulin Aspart (Novolog Vial Sliding Scale -) 1 vial SQ ACHS [facility] PRN Reason: Protocol Last Admin: 03/08/17 06:35 Dose: Not Given Ipratropium [place] (Atrovent 0.02% Nebulizer -) 1 amp NEB TIDR [facility] Last Admin: 03/08/17 06:36 Dose: 1 amp Levothyroxine Sodium (Synthroid -) 150 mcg PO DAILY@0700 [facility] Last Admin: 03/08/17 06:35 Dose: 150 mcg Promethazine HCl (Phenergan Injection -) 12.5 mg IVPB Q6H PRN PRN Reason: NAUSEA AND/OR VOMITING Senna (Senna -) 1 tab PO HS [facility] Last Admin: 03/07/17 21:16 Dose: 1 tab Valsartan (Diovan -) 160 mg PO DAILY [facility] Last Admin: 03/08/17 10:10 Dose: 160 mg - Objective Vital Signs: Vital Signs Temperature 97.9 F 03/08/17 06:00 Pulse Rate 64 03/08/17 06:00 Respiratory Rate 20 03/08/17 06:00 Blood Pressure 139/63 03/08/17 06:00 O2 Sat by Pulse Oximetry (%) 96 03/08/17 06:00 Constitutional: Yes: Mild Distress Eyes: Yes: WNL HENT: Yes: WNL Neck: Yes: WNL Cardiovascular: Yes: WNL Respiratory: Yes: On Nasal O2, Poor Air Entry Gastrointestinal: Yes: WNL Genitourinary: Yes: WNL Musculoskeletal: Yes: WNL Extremities: Yes: WNL Edema: No Peripheral Pulses WNL: Yes Integumentary: Yes: WNL Wound/Incision: Yes: Clean/Dry Neurological: Yes: WNL ...Motor Strength: WNL Psychiatric: Yes: WNL Labs: CBC, BMP 03/08/17 06:00 03/08/17 06:00 Problem List - Problems (1) Hypertension Code(s): I10 - ESSENTIAL (PRIMARY) HYPERTENSION (2) Lung mass Code(s): R91.8 - OTHER NONSPECIFIC ABNORMAL FINDING OF LUNG FIELD (3) History of lung biopsy Code(s): Z98.890 - OTHER SPECIFIED POSTPROCEDURAL STATES (4) Tobacco use Code(s): Z72.0 - TOBACCO USE Assessment/Plan FEELING BETTER WAITING FOR PATHOLOGY REPORT NEBS PULM F/U OOB TO CHAIR DVT PROPHYLAXIS
--- NOTE | 2017-03-08 12:40 | PN ---
Progress Note (short form) - Note Progress Note: PULMONARY Some shortness of breath induced by pain from chest tube. Last Vital Signs Temp Pulse Resp BP Pulse Ox 97.9 F 64 20 139/63 96 03/08/17 06:00 03/08/17 06:00 03/08/17 06:00 03/08/17 06:00 03/08/17 06:00 Gen: NAD in chair Heart: RRR Lung: basilar rales Abd: soft, nontender Ext: no edema Chest tube: +serous drainage, no air leak CBC, BMP 03/08/17 06:00 03/08/17 06:00 Active Medications Acetaminophen (Tylenol -) 1,000 mg PO Q6H PRN PRN Reason: FEVER OR PAIN Alprazolam (Xanax -) 0.5 mg PO Q12H PRN Last Admin: 03/08/17 10:16 Dose: 0.5 mg Amlodipine Besylate (Norvasc -) 5 mg PO DAILY [facility] Last Admin: 03/08/17 10:09 Dose: 5 mg Atenolol (Tenormin -) 100 mg PO DAILY [facility] Last Admin: 03/08/17 10:09 Dose: 100 mg Atorvastatin Calcium (Lipitor -) 40 mg PO HS [facility] Last Admin: 03/07/17 21:15 Dose: 40 mg Bupropion HCl (Wellbutrin -) 150 mg PO BID [facility] Last Admin: 03/08/17 10:09 Dose: 150 mg Docusate Sodium (Colace -) 100 mg PO TID [facility] Last Admin: 03/08/17 06:34 Dose: 100 mg Heparin Sodium (Porcine) (Heparin -) 5,000 unit SQ TID [facility] Last Admin: 03/08/17 06:34 Dose: 5,000 unit Insulin Aspart (Novolog Vial Sliding Scale -) 1 vial SQ ACHS [facility] PRN Reason: Protocol Last Admin: 03/08/17 12:15 Dose: Not Given Ipratropium [place] (Atrovent 0.02% Nebulizer -) 1 amp NEB TIDR [facility] Last Admin: 03/08/17 06:36 Dose: 1 amp Levothyroxine Sodium (Synthroid -) 150 mcg PO DAILY@0700 [facility] Last Admin: 03/08/17 06:35 Dose: 150 mcg Promethazine HCl (Phenergan Injection -) 12.5 mg IVPB Q6H PRN PRN Reason: NAUSEA AND/OR VOMITING Senna (Senna -) 1 tab PO HS [facility] Last Admin: 03/07/17 21:16 Dose: 1 tab Valsartan (Diovan -) 160 mg PO DAILY [facility] Last Admin: 03/08/17 10:10 Dose: 160 mg A/P Lung Masses/Nodules s/p R VATS/wedge resection HTN Hypercholesterolemia DM Former smoker - f/u pathology - monitor chest tube drainage - CT per thoracic surgery - pain control - incentive spirometry - DVT prophylaxis
--- NOTE | 2017-03-08 18:49 | PN ---
Progress Note (short form) - Note Progress Note: Thoracic Surgery POD#2 S/P vats wedge for dx of lymphproliferative lesion. Doing well. No leak. Drainage decreasing. Will remove tube. CXR tonight and tomorrow AM. If ok dc tomorrow and f/u in 2 weeks. Awaiting pathology.
[2017-03-08] MEDS: ATORVASTATIN CA 40 MG TABLET (FP) PO SCH (22:38)
[2017-03-08] MEDS: SENNOSIDES 8.6MG TABLET (FP) PO SCH (22:38)
[2017-03-09] MEDS: INSULIN SLIDING SCALE (NOVOLOG) 1 VIAL SQ SCH (06:06)
[2017-03-09] MEDS: DOCUSATE SODIUM 100 MG CAPSULE (FP) PO SCH (06:10)
[2017-03-09] MEDS: LEVOTHYROXINE NA 75 MCG TABLET (FP) PO SCH (06:10)
[2017-03-09] MEDS: HEPARIN NA (PORCINE) 5,000 UNITS/ML 1ML VIAL SQ SCH (06:11)
[2017-03-09] MEDS: IPRATROPIUM BR 0.02% 0.5 MG/2.5 ML VIAL.NEB. NEB SCH (06:55)
[2017-03-09] MEDS: VALSARTAN 160 MG TABLET (UD) PO SCH (09:33)
[2017-03-09] MEDS: ATENOLOL 50 MG TABLET (FP) PO SCH (09:37)
[2017-03-09] MEDS: amLODIPine BESYLATE 5 MG TABLET (FP) PO SCH (09:38)
[2017-03-09] MEDS: buPROPion HCL 75 MG TABLET PO SCH (09:38)
--- NOTE | 2017-03-09 11:01 | DS ---
Physical Examination Vital Signs: Vital Signs Temperature 98.4 F 03/09/17 05:00 Pulse Rate 67 03/09/17 05:00 Respiratory Rate 20 03/09/17 05:00 Blood Pressure 125/59 03/09/17 05:00 O2 Sat by Pulse Oximetry (%) 100 03/08/17 21:00 Constitutional: Yes: No Distress Eyes: Yes: WNL HENT: Yes: WNL Neck: Yes: WNL Cardiovascular: Yes: WNL Respiratory: Yes: WNL Gastrointestinal: Yes: WNL Renal/: Yes: WNL Musculoskeletal: Yes: WNL Extremities: Yes: WNL Edema: No Peripheral Pulses WNL: Yes Integumentary: Yes: WNL Wound/Incision: Yes: Clean/Dry Neurological: Yes: WNL ...Motor Strength: WNL Psychiatric: Yes: WNL Labs: CBC, BMP 03/08/17 06:00 03/08/17 06:00 Discharge Summary Reason For Visit: LUNG RESECTION Current Active Problems History of lung biopsy (Acute) Lung mass (Acute) Tobacco use (Acute) Procedures: Principal: lung wedge biopsy Other Procedures: LABS/CX Hospital Course: ADMITTED FOR VATS WEDGE BIOPSY AND ADMITTED TO ICU FOR POST-OP OBSERVATION, CHEST TUBE REMOVED CAN F/U BIOPSY OUTPATIENT Condition: Fair - Instructions Diet, Activity, Other Instructions: LOW SODIUM/ADA SEE DR [place] IN [address] POZO 1 WEEK Disposition: HOME - Home Medications Comprehensive Discharge Medication List: Ambulatory Orders Atenolol [Tenormin -] 100 mg PO DAILY 03/31/14 Metformin HCl [Glucophage -] 500 mg PO HS 03/31/14 Alprazolam [Xanax] 0.5 mg PO ONCE PRN 01/09/17 Amlodipine/Valsartan/Hcthiazid [Exforge Hct 5-160-25 mg Tab] 1 each PO DAILY Atorvastatin Ca [Lipitor] 40 mg PO HS 01/09/17 Bupropion HCl [Wellbutrin -] 150 mg PO BID 01/09/17 Levothyroxine [Synthroid -] 150 mcg PO DAILY 01/09/17 Cyclosporine [Restasis] 1 each OP DAILY 03/01/17 Tiotropium Br/Olodaterol HCl [Stiolto Respimat Inhal [place]] 2 puff IH DAILY 04/09
[2017-03-09 14:46] VITALS: BP 134/76; PULSE 83; TEMP 97.6
--- NOTE | 2017-03-20 14:55 | PATH ---
Surgical Pathology Report Patient Name: FRANDY COLVIN Med. Rec. #: [id number] /Age/Gender: 1950 (Age: 66) / F Account: [id number] Location: 4 W TELEMETRY U Taken: 03/06/2017 Received: 03/06/2017 Reported: 03/20/2017 Physicians: Chavez Razo M.D. Specimen(s) Received RIGHT LOWER LOBE WEDGE Clinical History Lung nodules Intraoperative Consult Diagnosis Right lower lobe wedge resection, frozen section and touch prep: Lymphoproliferative process. 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 SEE COMMENT. Comment: This case was seen in consultation with hematopathology service at [place], [place] ([id number], Dr. Beaulieu) and the Department of Pathology at [facility], [place], [place] (Dr. Gaurav Tyler MD, PhD). The diagnosis above reflects the consultation opinion. The morphologic and immunohistochemical features of lymphoid infiltrate are consistent with and Extranodal Marginal Zone Lymphoma (MALT lymphoma). Increased number of large cells are noted, which also supported by MIB-1 immunostains showed a proliferation index and correlated areas. Although this finding may suggest aggressive clinical behavior, no evidence of transformation to a large B-cell lymphoma is seen. Flow Cytometry performed and interpreted on the concurrent specimen at [place], [place] ([id number]) showed clonal (kappa) plasma cell population, 10% of total events. Clonal (cytoplasmic kappa+) plasma cells were CD38 bight; B-cells appeared polytypic with kappa excess. The T-cells showed no panT-cell antigenic deletion. The CD4:CD8 ratio was 5.7:1. 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 The case was preliminary discussed with Dr. Castano on 03/06/[address] López on 03/17/17. Electronically Signed Jose Cutler M.D. Gross Description Received fresh labeled "wedge resection right lower lobe" is an 11.0 x 7.3 x 3.3 cm lung wedge resection with a stapled margin of resection. The pleura displays a focal defect, consistent with a surgical incision. Sectioning reveals a 3.4 x 3.0 x 2.6 cm homogeneous orellana, solid mass abutting the pleura. The mass is at 0.3 cm from the staple line. The remaining lung parenchyma is orellana-pink and spongy. A touch prep is performed and a digital media representative section is submitted for frozen section. An additional portion is placed in RPMI solution and sent for flow cytometry. Traffic Survey Technician sections are submitted in 10 cassettes as follows: 1-frozen section residue; 2-3-staple line; 4-5-one full thickness bisected section of mass; 2-2-twadzpwvkd sections of mass; 10-uninvolved lung parenchyma. 03/06/2017 [facility]
--- NOTE | 2017-03-21 19:41 | PN ---
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 Problem List - Problems (1) Hypertension Code(s): I10 - ESSENTIAL (PRIMARY) HYPERTENSION (2) Lung mass Code(s): R91.8 - OTHER NONSPECIFIC ABNORMAL FINDING OF LUNG FIELD (3) History of lung biopsy Code(s): Z98.890 - OTHER SPECIFIED POSTPROCEDURAL STATES (4) Tobacco use Code(s): Z72.0 - TOBACCO USE
== END 2017-03-09 12:13 | disposition home or self-care (01) | DRG 821 ==
LOC: JSAMEDAYSX 06:04 → EDSTATUS 07:30 → JICU 14:45 → J4W 03-07 13:50
PROVIDERS: ADMIT Surgery; ATTEND Surgery
PROC: 0BJ08ZZ Inspection of Tracheobronchial Tree, Via Natural or Artificial Opening Endoscopic (ICD-10-PCS; 2017-03-06)
PROC: 3E0T3BZ Introduction of Anesthetic Agent into Peripheral Nerves and Plexi, Percutaneous Approach (ICD-10-PCS; 2017-03-06)
PROC: 0BBF4ZZ Excision of Right Lower Lung Lobe, Percutaneous Endoscopic Approach (ICD-10-PCS; principal; 2017-03-06 07:30)
PROC: 0BNC4ZZ Release Right Upper Lung Lobe, Percutaneous Endoscopic Approach (ICD-10-PCS; 2017-03-06 07:30)
DX: C88.4 Extranodal marginal zone B-cell lymphoma of mucosa-associated lymphoid tissue [MALT-lymphoma] (principal); J98.11 Atelectasis; R91.8 Other nonspecific abnormal finding of lung field; I10 Essential (primary) hypertension; F17.210 Nicotine dependence, cigarettes, uncomplicated; E78.5 Hyperlipidemia, unspecified; E66.9 Obesity, unspecified; Z68.31 Body mass index [BMI] 31.0-31.9, adult; E11.9 Type 2 diabetes mellitus without complications; E03.9 Hypothyroidism, unspecified; F41.9 Anxiety disorder, unspecified
CPT/HCPCS: 36415; 71010-TC; 80053; 83036; 83735; 84100; 85027; 87070; 87075; 87102; 87116; 87205; 87206; 87210; 88307-TC; 88331-TC; 94010; 94640; 94760; 97116-GP; 97161-GP; J1644

== ENCOUNTER 2017-05-10 07:39 | Day surgery (SDC) | payer OTHER ==
[2017-05-10 09:36] LABS: BASOPHIL 0.7 % (0-2.0); MCH 20.5 pg (25.7-33.7); MCHC 31.2 g/dl (32.0-36.0); MEAN CELL VOLUME 65.7 fl (80-96); MEAN PLT VOLUME 8.8 fl (7.5-11.1); NEUTROPHILS 71.2 % (42.8-82.8); PLATELET COUNT 177 K/MM3 (134-434); RDW 16.3 % (11.6-15.6); WHITE BLOOD COUNT 8.7 K/mm3 (4.0-10.0)
[2017-05-10] MEDS ORDERED: ACETAMINOPHEN 325 MG TABLET (FP) PO ONE (10:00)
[2017-05-10] MEDS ORDERED: DIPHENHYDRAMINE 50 MG in SODIUM CHLORIDE 50 ML IVPB ONE (10:00)
[2017-05-10] MEDS ORDERED: SODIUM CHLORIDE IVPB ONE (10:00)
[2017-05-10] MEDS ORDERED: RITUXIMAB IVPB ONE (10:00)
[2017-05-10 10:07] LABS: ALBUMIN 3.7 g/dl (3.4-5.0); ALK PHOS 89 U/L (45-117); ANION GAP 7 (8-16); BILIRUBIN,DIRECT 0.2 mg/dL (0.0-0.2); CALCIUM 8.6 mg/dL (8.5-10.1); CO2 28 mmol/L (21-32); CREATININE 0.8 mg/dL (0.55-1.02); GLUCOSE,RANDOM 135 mg/dL (74-106); MAGNESIUM 1.8 mg/dL (1.8-2.4); SGOT/AST 24 U/L (15-37); SGPT/ALT 31 U/L (12-78); TOT PROT 7.2 g/dl (6.4-8.2)
[2017-05-10 10:34] VITALS: TEMP 98
[2017-05-10] MEDS ORDERED: DEXAMETHASONE SOD PHOSPHATE 10 MG/1 ML VIAL IVPB ONE ×2 (11:00→14:30)
[2017-05-10] MEDS ORDERED: DEXAMETHASONE SOD PHOSPHATE 10 MG/1 ML VIAL ONE (14:14)
[2017-05-10 14:39] LABS: ANISOCYTOSIS 1+; HYPOCHROMIA 2+; PLATELET ESTIMATE ADEQUATE (NORMAL); POIKILOCYTOSIS 1+
[2017-05-10 14:40] LABS: OVALOCYTE FEW; TEAR DROP CELLS FEW
[2017-05-10 16:50] VITALS: BP 138/60; PULSE 74
== END 2017-05-10 16:45 | disposition home or self-care (01) ==
LOC: JONCCHEMO 07:39 → J7W 10:20 → JONCCHEMO 16:45
PROVIDERS: ATTEND Internal Medicine Hematology & Oncology
PROC: 3E03305 Introduction of Other Antineoplastic into Peripheral Vein, Percutaneous Approach (ICD-10-PCS; principal; 2017-05-10)
PROC: 3E043GC Introduction of Other Therapeutic Substance into Central Vein, Percutaneous Approach (ICD-10-PCS; 2017-05-10)
DX: Z51.11 Encounter for antineoplastic chemotherapy (principal); C83.82 Other non-follicular lymphoma, intrathoracic lymph nodes; I10 Essential (primary) hypertension; E11.9 Type 2 diabetes mellitus without complications; E03.9 Hypothyroidism, unspecified; Q61.3 Polycystic kidney, unspecified
CPT/HCPCS: 36415; 80053; 80076; 83735; 85025; 96375; 96413; 96415; J9310

== ENCOUNTER 2017-05-17 06:53 | Day surgery (SDC) | payer OTHER ==
[2017-05-17] MEDS ORDERED: ACETAMINOPHEN 325 MG TABLET (FP) PO ONE (10:00)
[2017-05-17] MEDS ORDERED: DIPHENHYDRAMINE 50 MG in SODIUM CHLORIDE 50 ML IVPB ONE (10:00)
[2017-05-17] MEDS ORDERED: RITUXIMAB IVPB ONE (10:30)
[2017-05-17] MEDS ORDERED: SODIUM CHLORIDE IVPB ONE (10:30)
[2017-05-17 11:02] LABS: BASOPHIL 1.3 % (0-2.0); EOSINOPHIL 3.6 % (0-4.5); MCH 20.3 pg (25.7-33.7); MCHC 31.7 g/dl (32.0-36.0); MEAN CELL VOLUME 64.2 fl (80-96); MEAN PLT VOLUME 9.2 fl (7.5-11.1); NEUTROPHILS 69.9 % (42.8-82.8); PLATELET COUNT 191 K/MM3 (134-434); RDW 15.9 % (11.6-15.6); WHITE BLOOD COUNT 9.5 K/mm3 (4.0-10.0)
[2017-05-17 11:36] LABS: ALBUMIN 3.7 g/dl (3.4-5.0); ANION GAP 9 (8-16); BILIRUBIN,DIRECT 0.3 mg/dL (0.0-0.2); CALCIUM 9.1 mg/dL (8.5-10.1); CO2 26 mmol/L (21-32); CREATININE 0.8 mg/dL (0.55-1.02); GLUCOSE,RANDOM 152 mg/dL (74-106); MAGNESIUM 2.2 mg/dL (1.8-2.4); SGOT/AST 18 U/L (15-37); SGPT/ALT 34 U/L (12-78)
[2017-05-17 11:38] LABS: ALK PHOS 94 U/L (45-117); BILIRUBIN,TOTAL 1.1 mg/dL (0.2-1.0); TOT PROT 7.1 g/dl (6.4-8.2)
[2017-05-17] MEDS ORDERED: DEXAMETHASONE INJECTION 10 MG in SODIUM CHLORIDE 50 ML IVPUSH ONE (12:15)
[2017-05-17] MEDS ORDERED: DEXAMETHASONE SOD PHOSPHATE 10 MG/1 ML VIAL ONE (12:29)
[2017-05-17 17:28] VITALS: BP 109/56; PULSE 70; TEMP 97.7
[2017-05-17 19:20] LABS: PLATELET COMMENT2 NO CLOTTING DETECTED; PLATELET COMMENT3 FEW LARGE PLTS; PLATELET ESTIMATE ADEQUATE (NORMAL)
[2017-05-17 19:21] LABS: ANISOCYTOSIS 2+; MICROCYTOSIS 2+; POIKILOCYTOSIS 1+; POLYCHROMASIA 1+; SPHEROCYTE 1+; TEAR DROP CELLS 1+
== END 2017-05-17 16:10 | disposition home or self-care (01) ==
LOC: JONCCHEMO 06:53 → J7W 11:49 → JONCCHEMO 16:10
PROVIDERS: ATTEND Internal Medicine Hematology & Oncology
DX: Z51.11 Encounter for antineoplastic chemotherapy (principal); C83.82 Other non-follicular lymphoma, intrathoracic lymph nodes
CPT/HCPCS: 36415; 80053; 80076; 83735; 85025; 96375; 96413; 96415; J9310

== ENCOUNTER 2017-05-24 06:57 | Day surgery (SDC) | payer OTHER ==
[2017-05-24 09:45] LABS: BASOPHIL 0.8 % (0-2.0); EOSINOPHIL 2.6 % (0-4.5); MCH 20.4 pg (25.7-33.7); MCHC 31.6 g/dl (32.0-36.0); MEAN CELL VOLUME 64.8 fl (80-96); MEAN PLT VOLUME 9.1 fl (7.5-11.1); NEUTROPHILS 76.3 % (42.8-82.8); PLATELET COUNT 181 K/MM3 (134-434); RDW 15.9 % (11.6-15.6); WHITE BLOOD COUNT 11.7 K/mm3 (4.0-10.0)
[2017-05-24] MEDS ORDERED: ACETAMINOPHEN 325 MG TABLET (FP) PO ONE (10:00)
[2017-05-24] MEDS ORDERED: DIPHENHYDRAMINE 50 MG in SODIUM CHLORIDE 50 ML IVPB ONE (10:00)
[2017-05-24 10:10] LABS: ALBUMIN 3.8 g/dl (3.4-5.0); ANION GAP 11 (8-16); BILIRUBIN,DIRECT 0.3 mg/dL (0.0-0.2); CALCIUM 8.7 mg/dL (8.5-10.1); CO2 23 mmol/L (21-32); CREATININE 0.9 mg/dL (0.55-1.02); GLUCOSE,RANDOM 150 mg/dL (74-106); SGOT/AST 27 U/L (15-37); SGPT/ALT 45 U/L (12-78)
[2017-05-24 10:12] LABS: ALK PHOS 98 U/L (45-117); BILIRUBIN,TOTAL 1.3 mg/dL (0.2-1.0); TOT PROT 7.1 g/dl (6.4-8.2)
[2017-05-24] MEDS ORDERED: SODIUM CHLORIDE IVPB ONE (10:30)
[2017-05-24] MEDS ORDERED: RITUXIMAB IVPB ONE (10:30)
[2017-05-24] MEDS ORDERED: DEXAMETHASONE SOD PHOSPHATE 10 MG/1 ML VIAL ONE (10:54)
[2017-05-24] MEDS ORDERED: DEXAMETHASONE SOD PHOSPHATE 10 MG/1 ML VIAL IVPB ONE (11:00)
[2017-05-24 15:44] VITALS: BP 120/65; PULSE 73; TEMP 98.4
== END 2017-05-24 15:17 | disposition home or self-care (01) ==
LOC: JONCCHEMO 06:57 → J7W 10:13 → JONCCHEMO 15:17
PROVIDERS: ATTEND Internal Medicine Hematology & Oncology
DX: Z51.11 Encounter for antineoplastic chemotherapy (principal); C88.4 Extranodal marginal zone B-cell lymphoma of mucosa-associated lymphoid tissue [MALT-lymphoma]
CPT/HCPCS: 36415; 80053; 80076; 83735; 85025; 96375; 96413; 96415; J9310

== ENCOUNTER 2017-08-02 07:37 | Day surgery (SDC) | payer OTHER ==
[2017-08-02] MEDS ORDERED: DEXAMETHASONE SOD PHOSPHATE 10 MG/1 ML VIAL IVPUSH ONE (10:00)
[2017-08-02] MEDS ORDERED: ACETAMINOPHEN 325 MG TABLET (FP) PO ONE (10:00)
[2017-08-02] MEDS ORDERED: SODIUM CHLORIDE IVPB ONE (10:30)
[2017-08-02] MEDS ORDERED: RITUXIMAB IVPB ONE (10:30)
[2017-08-02 13:05] LABS: BASO % 0.6 % (0-2.0); EOS % 1.9 % (0-4.5); HEMATOCRIT 39.4 % (32.4-45.2); HEMOGLOBIN 12.2 GM/dL (10.7-15.3); LYMPH % 16.6 % (8-40); MCH 20.1 pg (25.7-33.7); MCHC 30.9 g/dl (32.0-36.0); MEAN CELL VOLUME 65.2 fl (80-96); MEAN PLT VOLUME 9.7 fl (7.5-11.1); MONO % 6.6 % (3.8-10.2); NEUT % 74.3 % (42.8-82.8); PLATELET COUNT 200 K/MM3 (134-434); RBC 6.05 M/mm3 (3.60-5.2); RDW 15.6 % (11.6-15.6); WHITE BLOOD COUNT 9.2 K/mm3 (4.0-10.0)
[2017-08-02 13:14] LABS: ADD RBC MORPHOLOGY YES
[2017-08-02 13:34] LABS: ALBUMIN 3.9 g/dl (3.4-5.0); ANION GAP 10 (8-16); BLOOD UREA NITROGEN 16 mg/dL (7-18); CALCIUM 9.3 mg/dL (8.5-10.1); CHLORIDE 104 mmol/L (98-107); CO2 24 mmol/L (21-32); CREATININE 0.8 mg/dL (0.55-1.02); GLUCOSE,RANDOM 126 mg/dL (74-106); LDH 178 U/L (84-246); MAGNESIUM 2.1 mg/dL (1.8-2.4); POTASSIUM 3.9 mmol/L (3.5-5.1); SGOT/AST 18 U/L (15-37); SGPT/ALT 42 U/L (12-78); SODIUM 138 mmol/L (136-145); TOT PROT 7.4 g/dl (6.4-8.2); URIC ACID 5.8 mg/dL (2.6-7.2)
[2017-08-02 13:35] LABS: ALK PHOS 90 U/L (45-117)
[2017-08-02 16:16] VITALS: TEMP 98.4
[2017-08-02 17:44] VITALS: BP 135/77; PULSE 73
[2017-08-02] MEDS ORDERED: SODIUM CHLORIDE 250 ML IV ONE (17:45)
== END 2017-08-02 17:45 | disposition home or self-care (01) ==
LOC: JONCCHEMO 07:37 → J7W 12:26 → JONCCHEMO 17:45
PROVIDERS: ATTEND Internal Medicine Hematology & Oncology
DX: Z51.11 Encounter for antineoplastic chemotherapy (principal); C88.4 Extranodal marginal zone B-cell lymphoma of mucosa-associated lymphoid tissue [MALT-lymphoma]
CPT/HCPCS: 36415; 80053; 83615; 83735; 84550; 85025; 96367; 96375; 96413; 96415; J1100; J9310

== ENCOUNTER 2017-10-05 07:27 | Day surgery (SDC) | payer OTHER ==
[2017-10-05 09:40] LABS: BASO % 0.7 % (0-2.0); EOS % 2.5 % (0-4.5); HEMATOCRIT 37.1 % (32.4-45.2); HEMOGLOBIN 11.9 GM/dL (10.7-15.3); LYMPH % 16.3 % (8-40); MCH 20.6 pg (25.7-33.7); MEAN CELL VOLUME 64.4 fl (80-96); MEAN PLT VOLUME 9.4 fl (7.5-11.1); MONO % 6.7 % (3.8-10.2); NEUT % 73.8 % (42.8-82.8); PLATELET COUNT 148 K/MM3 (134-434); RBC 5.76 M/mm3 (3.60-5.2); RDW 15.7 % (11.6-15.6); WHITE BLOOD COUNT 9.2 K/mm3 (4.0-10.0)
[2017-10-05] MEDS ORDERED: ACETAMINOPHEN 325 MG TABLET (FP) PO ONE (10:00)
[2017-10-05] MEDS ORDERED: DEXAMETHASONE INJECTION 10 MG, DIPHENHYDRAMINE 50 MG in SODIUM CHLORIDE 100 ML IVPB ONE (10:00)
[2017-10-05 10:08] LABS: ALBUMIN 3.5 g/dl (3.4-5.0); ALK PHOS 82 U/L (45-117); ANION GAP 12 (8-16); BILIRUBIN,DIRECT 0.3 mg/dL (0.0-0.2); BILIRUBIN,TOTAL 0.9 mg/dL (0.2-1.0); BLOOD UREA NITROGEN 18 mg/dL (7-18); CALCIUM 8.2 mg/dL (8.5-10.1); CHLORIDE 104 mmol/L (98-107); CO2 23 mmol/L (21-32); CREATININE 0.8 mg/dL (0.55-1.02); GLUCOSE,RANDOM 198 mg/dL (74-106); MAGNESIUM 1.8 mg/dL (1.8-2.4); POTASSIUM 3.9 mmol/L (3.5-5.1); SGOT/AST 17 U/L (15-37); SGPT/ALT 44 U/L (12-78); SODIUM 139 mmol/L (136-145); TOT PROT 6.4 g/dl (6.4-8.2)
[2017-10-05] MEDS ORDERED: RITUXIMAB IVPB ONE (10:30)
[2017-10-05] MEDS ORDERED: SODIUM CHLORIDE IVPB ONE (10:30)
[2017-10-05 15:34] VITALS: TEMP 97.8
[2017-10-05 15:35] VITALS: BP 136/69; PULSE 75
== END 2017-10-05 15:00 | disposition home or self-care (01) ==
LOC: JONCCHEMO 07:27 → J7W 10:27 → JONCCHEMO 15:00
PROVIDERS: ATTEND Internal Medicine Hematology & Oncology
PROC: 3E03305 Introduction of Other Antineoplastic into Peripheral Vein, Percutaneous Approach (ICD-10-PCS; principal; 2017-10-05)
PROC: 3E033GC Introduction of Other Therapeutic Substance into Peripheral Vein, Percutaneous Approach (ICD-10-PCS; 2017-10-05)
DX: Z51.11 Encounter for antineoplastic chemotherapy (principal); C83.12 Mantle cell lymphoma, intrathoracic lymph nodes; I10 Essential (primary) hypertension; E11.9 Type 2 diabetes mellitus without complications; E03.9 Hypothyroidism, unspecified; Q61.3 Polycystic kidney, unspecified
CPT/HCPCS: 36415; 80053; 80076; 83735; 85025; 96367; 96375; 96413; 96415; J1100; J7030; J9310

== ENCOUNTER 2017-12-13 07:22 | Day surgery (SDC) | payer OTHER ==
[2017-12-13] MEDS ORDERED: ACETAMINOPHEN 325 MG TABLET (FP) PO ONE (08:00)
[2017-12-13] MEDS ORDERED: DEXAMETHASONE INJECTION 10 MG, DIPHENHYDRAMINE 50 MG in SODIUM CHLORIDE 100 ML IVPB ONE (08:00)
[2017-12-13] MEDS ORDERED: SODIUM CHLORIDE IVPB ONE (09:00)
[2017-12-13] MEDS ORDERED: RITUXIMAB IVPB ONE (09:00)
[2017-12-13 09:55] LABS: BASO % 0.6 % (0-2.0); EOS % 2.4 % (0-4.5); HEMATOCRIT 40.2 % (32.4-45.2); HEMOGLOBIN 12.6 GM/dL (10.7-15.3); LYMPH % 16.6 % (8-40); MCH 20.3 pg (25.7-33.7); MCHC 31.4 g/dl (32.0-36.0); MEAN CELL VOLUME 64.6 fl (80-96); MEAN PLT VOLUME 9.8 fl (7.5-11.1); MONO % 7.3 % (3.8-10.2); NEUT % 73.1 % (42.8-82.8); PLATELET COUNT 255 K/MM3 (134-434); RBC 6.23 M/mm3 (3.60-5.2); RDW 15.6 % (11.6-15.6); WHITE BLOOD COUNT 10.7 K/mm3 (4.0-10.0)
[2017-12-13 10:25] LABS: ANION GAP 8 (8-16); BILIRUBIN,DIRECT 0.3 mg/dL (0.0-0.2); BILIRUBIN,TOTAL 1.1 mg/dL (0.2-1.0); BLOOD UREA NITROGEN 26 mg/dL (7-18); CALCIUM 9.3 mg/dL (8.5-10.1); CHLORIDE 103 mmol/L (98-107); CO2 27 mmol/L (21-32); CREATININE 0.8 mg/dL (0.55-1.02); GLUCOSE,RANDOM 165 mg/dL (74-106); MAGNESIUM 2.1 mg/dL (1.8-2.4); POTASSIUM 3.9 mmol/L (3.5-5.1); SGOT/AST 19 U/L (15-37); SGPT/ALT 35 U/L (12-78); SODIUM 138 mmol/L (136-145); TOT PROT 7.4 g/dl (6.4-8.2)
[2017-12-13 10:26] LABS: ALK PHOS 94 U/L (45-117)
[2017-12-13 11:28] LABS: PLATELET ESTIMATE NORMAL; TEAR DROP CELLS 2+
[2017-12-13 12:18] VITALS: TEMP 97.3
[2017-12-13 15:14] VITALS: BP 131/80; PULSE 70
== END 2017-12-13 15:16 | disposition home or self-care (01) ==
LOC: JONCCHEMO 07:22 → J7W 11:09 → JONCCHEMO 15:16
PROVIDERS: ATTEND Internal Medicine Hematology & Oncology
PROC: 3E03305 Introduction of Other Antineoplastic into Peripheral Vein, Percutaneous Approach (ICD-10-PCS; principal; 2017-12-13)
PROC: 3E033GC Introduction of Other Therapeutic Substance into Peripheral Vein, Percutaneous Approach (ICD-10-PCS; 2017-12-13)
DX: Z51.11 Encounter for antineoplastic chemotherapy (principal); C83.12 Mantle cell lymphoma, intrathoracic lymph nodes; I10 Essential (primary) hypertension; E11.9 Type 2 diabetes mellitus without complications; E03.9 Hypothyroidism, unspecified; D64.9 Anemia, unspecified; Q61.3 Polycystic kidney, unspecified
CPT/HCPCS: 36415; 80053; 80076; 83735; 85025; 96367; 96375; 96413; 96415; J1100; J7030; J9310

== ENCOUNTER 2018-02-07 07:47 | Day surgery (SDC) | payer OTHER ==
[2018-02-07] MEDS ORDERED: DEXAMETHASONE INJECTION 10 MG, DIPHENHYDRAMINE 50 MG in SODIUM CHLORIDE 100 ML IVPB ONE (08:00)
[2018-02-07] MEDS ORDERED: ACETAMINOPHEN 325 MG TABLET (FP) PO ONE (08:00)
[2018-02-07] MEDS ORDERED: RITUXIMAB IVPB ONE (08:30)
[2018-02-07] MEDS ORDERED: SODIUM CHLORIDE IVPB ONE (08:30)
[2018-02-07 08:56] LABS: BASO % 0.6 % (0-2.0); EOS % 1.6 % (0-4.5); HEMATOCRIT 39.8 % (32.4-45.2); HEMOGLOBIN 12.5 GM/dL (10.7-15.3); LYMPH % 12.8 % (8-40); MCH 20.1 pg (25.7-33.7); MCHC 31.4 g/dl (32.0-36.0); MEAN CELL VOLUME 64.2 fl (80-96); MEAN PLT VOLUME 9.4 fl (7.5-11.1); MONO % 6.9 % (3.8-10.2); NEUT % 78.1 % (42.8-82.8); PLATELET COUNT 171 K/MM3 (134-434); RBC 6.21 M/mm3 (3.60-5.2); RDW 15.7 % (11.6-15.6); WHITE BLOOD COUNT 11.7 K/mm3 (4.0-10.0)
[2018-02-07 09:20] LABS: ANION GAP 8 (8-16); BILIRUBIN,DIRECT 0.3 mg/dL (0.0-0.2); BLOOD UREA NITROGEN 21 mg/dL (7-18); CALCIUM 9.3 mg/dL (8.5-10.1); CHLORIDE 104 mmol/L (98-107); CO2 27 mmol/L (21-32); CREATININE 0.8 mg/dL (0.55-1.02); GLUCOSE,RANDOM 174 mg/dL (74-106); MAGNESIUM 1.8 mg/dL (1.8-2.4); POTASSIUM 3.9 mmol/L (3.5-5.1); SGOT/AST 22 U/L (15-37); SGPT/ALT 35 U/L (12-78); SODIUM 139 mmol/L (136-145); URIC ACID 5.2 mg/dL (2.6-7.2)
[2018-02-07 09:21] LABS: BILIRUBIN,TOTAL 0.7 mg/dL (0.2-1.0)
[2018-02-07 09:23] LABS: ALK PHOS 98 U/L (45-117); BILIRUBIN,TOTAL 0.7 mg/dL (0.2-1.0); LDH 182 U/L (84-246); TOT PROT 7.3 g/dl (6.4-8.2)
[2018-02-07 12:31] LABS: ANISOCYTOSIS 2+; TEAR DROP CELLS 1+
[2018-02-07 13:45] VITALS: TEMP 98.2
[2018-02-07 13:52] VITALS: BP 147/78; PULSE 61
== END 2018-02-07 13:35 | disposition home or self-care (01) ==
LOC: JONCCHEMO 07:47 → J7W 09:19 → JONCCHEMO 13:35
PROVIDERS: ATTEND Internal Medicine Hematology & Oncology
DX: Z51.11 Encounter for antineoplastic chemotherapy (principal); C83.12 Mantle cell lymphoma, intrathoracic lymph nodes; I10 Essential (primary) hypertension; E11.9 Type 2 diabetes mellitus without complications; D64.9 Anemia, unspecified; E03.9 Hypothyroidism, unspecified
CPT/HCPCS: 36415; 80053; 80076; 83615; 83735; 84550; 85025; 85651; 96367; 96375; 96413; 96415; J1100; J7030; J9310

== ENCOUNTER 2018-03-22 07:52 | Day surgery (SDC) | payer OTHER ==
[2018-03-21 14:07] VITALS: BMI 32.1
--- NOTE | 2018-03-22 08:30 | PROC ---
Endoscopy Procedure Endoscopy procedure completed. Please see scanned procedure report.
[2018-03-22 10:13] VITALS: TEMP 97.8
[2018-03-22 10:22] VITALS: PULSE 63
[2018-03-22 11:36] VITALS: BP 129/54
--- NOTE | 2018-03-23 09:54 | PATH ---
Surgical Pathology Report Patient Name: FRANDY COLVIN [facility] Rec. #: [id number] /Age/Gender: 1950 (Age: 67) / F Account: [id number] Location: ASU-ENDOSCOPY Taken: 03/22/2018 Received: 03/22/2018 Reported: 03/23/2018 Physicians: Buddy Dye M.D. Specimen(s) Received BX HEPATIC FLEXURE POLYP Clinical History Screening Postoperative diagnosis: Diverticulosis, colon polyp Final Diagnosis COLON, HEPATIC FLEXURE, POLYPECTOMY: COLONIC POLYP WITH SERRATED ARCHITECTURE AND AREAS CONSISTENT WITH SESSILE SERRATED POLYP. Comment: Sessile serrated polyps are not dysplastic (adenomatous). They share morphologic features with hyperplastic polyps and, in the past, have been referred to as such. However, recent studies indicate that they harbor BRAF mutations and may represent neoplastic precursors to a subset of sporadic, microsatellite unstable colon cancers. They are generally treated and followed similar to colonic adenomas. MALENA Koo and Ayanna, [facility] 2010, 139(5):6862-0148. Electronically Signed Alexander Pickard M.D. Gross Description Received in formalin, labeled "polyp hepatic flexure" is a orellana, irregular portion of soft tissue measuring 0.7 cm. in greatest dimension. The specimen is submitted in toto in one cassette. 03/22/201803/22/2018
== END 2018-03-22 11:05 | disposition home or self-care (01) ==
LOC: JASU-ENDO 07:52
PROVIDERS: ATTEND Internal Medicine Gastroenterology
PROC: 0DBL8ZX Excision of Transverse Colon, Via Natural or Artificial Opening Endoscopic, Diagnostic (ICD-10-PCS; principal; 2018-03-22 09:45)
DX: Z12.11 Encounter for screening for malignant neoplasm of colon (principal); K57.30 Diverticulosis of large intestine without perforation or abscess without bleeding; K64.8 Other hemorrhoids
CPT/HCPCS: 82962; 88305-TC

== ENCOUNTER 2023-08-17 04:11 | Inpatient (IN) | payer OTHER ==
[2023-08-17] MEDS ORDERED: ROCURONIUM BROMIDE 50 MG/5 ML SYRINGE ONE (13:00)
[2023-08-17] MEDS ORDERED: MIDAZOLAM HCL 2 MG/2 ML SINGLE DOSE VIAL ONE ×2 (13:01→13:13)
[2023-08-17] MEDS ORDERED: PROPOFOL 20 ML ONE (13:01)
[2023-08-17] MEDS ORDERED: ONDANSETRON 4 MG/2 ML VIAL IVPUSH PRN (13:32)
[2023-08-17] MEDS ORDERED: LACTATED RINGERS SOLUTION 1,000 ML IV SCH (13:45)
[2023-08-17] MEDS ORDERED: BUPIVACAINE HCL/PF 0.25% (2.5MG/ML) 10 ML VIAL ONE (15:32)
[2023-08-17] MEDS: BUPIVACAINE HCL/PF 0.25% (2.5MG/ML) 10 ML VIAL IJ ONE ×2 (15:38)
[2023-08-17] MEDS ORDERED: ACETAMINOPHEN 500 MG TABLET (FP) PO PRN (16:32)
[2023-08-17] MEDS ORDERED: IBUPROFEN 600 MG TABLET (FP) PO PRN (16:33)
[2023-08-17 17:40] VITALS: RESP 16
[2023-08-17 18:34] VITALS: BP 147/48; PULSE 69; TEMP 97.3
== END 2023-08-17 18:20 | disposition home or self-care (01) | DRG 465 ==
LOC: J2C 04:11
PROVIDERS: ADMIT Student in an Organized Health Care Education/Training Program; ATTEND Student in an Organized Health Care Education/Training Program
PROC: 0JB70ZZ Excision of Back Subcutaneous Tissue and Fascia, Open Approach (ICD-10-PCS; principal; 2023-08-17 11:00)
DX: M79.89 Other specified soft tissue disorders (principal); R91.1 Solitary pulmonary nodule
CPT/HCPCS: 82962; 86850; 86900; 86901; 88305-TC; 88307-TC; 88331-TC; 94760

== ENCOUNTER 2023-09-18 09:21 | Day surgery (SDC) | payer OTHER ==
[2023-09-18 09:57] LABS: BASO % 0.7 % (0-2.0); EOS % 2.6 % (0-4.5); HEMATOCRIT 37.8 % (32.4-45.2); HEMOGLOBIN 11.9 GM/dL (10.7-15.3); LYMPH % 14.7 % (8-40); MCH 20.8 pg (25.7-33.7); MCHC 31.5 g/dl (32.0-36.0); MEAN PLT VOLUME 9.8 fl (7.5-11.1); MONO % 5.5 % (3.8-10.2); NEUT % 76.5 % (42.8-82.8); PLATELET COUNT 220 10^3/uL (134-434); RBC 5.73 M/mm3 (3.60-5.2); RDW 17.1 % (11.6-15.6); WHITE BLOOD COUNT 10.8 K/mm3 (4.0-10.0)
[2023-09-18] MEDS: SODIUM CHLORIDE 250 ML IV ONE (10:07)
[2023-09-18] MEDS: DEXAMETHASONE SODIUM PHOSPHATE 10 MG, DIPHENHYDRAMINE 50 MG in SODIUM CHLORIDE 100 ML IVPB ONE (10:07)
[2023-09-18 10:11] LABS: POTASSIUM 4.4 mmol/L (3.5-5.1)
[2023-09-18 10:13] LABS: ALBUMIN 3.9 g/dl (3.4-5.0); CALCIUM 9.5 mg/dL (8.5-10.1)
[2023-09-18 10:14] LABS: BLOOD UREA NITROGEN 18.9 mg/dL (7-18); MAGNESIUM 1.9 mg/dL (1.8-2.4)
[2023-09-18 10:15] LABS: URIC ACID 5.5 mg/dL (2.6-7.2)
[2023-09-18 10:17] LABS: PHOSPHOROUS 4.1 mg/dL (2.5-4.9)
[2023-09-18] MEDS: ACETAMINOPHEN 325 MG TABLET (FP) PO ONE (10:17)
[2023-09-18 10:18] LABS: BILIRUBIN,TOTAL 1.4 mg/dL (0.2-1); TOT PROT 7.4 g/dl (6.4-8.2)
[2023-09-18] MEDS: PALONOSETRON HCL 0.25 MG/5 ML VIAL IVPUSH ONE (10:38)
[2023-09-18] MEDS ORDERED: INSULIN (NOVOLOG) ASPART 100 UNITS/ML 10ML VIAL ONE (10:43)
[2023-09-18] MEDS: INSULIN (NOVOLOG) ASPART 100 UNITS/ML 10ML VIAL SQ ONE ×3 (10:48→16:00)
[2023-09-18 10:49] LABS: ANISOCYTOSIS 3+; MACROCYTOSIS 0
[2023-09-18] MEDS: SODIUM CHLORIDE IVPB ONE (11:05)
[2023-09-18] MEDS: BENDAMUSTINE HCL IVPB ONE (11:05)
[2023-09-18] MEDS: DEXAMETHASONE SODIUM PHOSPHATE 10 MG in SODIUM CHLORIDE 50 ML IVPB ONE (11:44)
[2023-09-18] MEDS: DEXAMETHASONE SOD PHOSPHATE 10 MG/1 ML VIAL IVPB ONE (13:49)
[2023-09-18] MEDS: SODIUM CHLORIDE 0.9% 500 ML INFUS.BAG IV ONE (14:00)
[2023-09-18 15:31] VITALS: TEMP 97.8
[2023-09-18] MEDS: PORTA CATH FLUSH 10 ML IVPUSH PRN (16:03)
[2023-09-18 16:10] VITALS: BP 138/65; PULSE 64; RESP 16
== END 2023-09-18 16:19 | disposition home or self-care (01) ==
LOC: JONCCHEMO 09:21 → J7W 09:22 → JONCCHEMO 16:19
PROVIDERS: ATTEND Internal Medicine Hematology & Oncology
DX: Z51.11 Encounter for antineoplastic chemotherapy (principal); C83.12 Mantle cell lymphoma, intrathoracic lymph nodes
CPT/HCPCS: 36415; 80053; 82962; 83615; 83735; 84100; 84550; 85025; 96375; 96413; 96417; J1100; J2469; J9034; Q5115

== ENCOUNTER 2023-09-19 12:50 | Day surgery (SDC) | payer OTHER ==
[2023-09-19] MEDS: DEXAMETHASONE SODIUM PHOSPHATE 10 MG, DIPHENHYDRAMINE 25 MG in SODIUM CHLORIDE 100 ML IVPB ONE (13:25)
[2023-09-19] MEDS: SODIUM CHLORIDE 250 ML IV ONE (13:28)
[2023-09-19] MEDS: BENDAMUSTINE HCL IVPB ONE (14:26)
[2023-09-19] MEDS: SODIUM CHLORIDE IVPB ONE (14:26)
[2023-09-19] MEDS: PORTA CATH FLUSH 10 ML IVPUSH PRN (15:00)
[2023-09-19 15:18] VITALS: RESP 20
[2023-09-19 15:33] VITALS: BP 130/61; PULSE 72
[2023-09-19] MEDS ORDERED: PORTA CATH FLUSH 10 ML IVPUSH PRN (15:59)
[2023-09-19 16:09] VITALS: TEMP 98
== END 2023-09-19 15:15 | disposition home or self-care (01) ==
LOC: JONCCHEMO 12:50 → J7W 12:50 → JONCCHEMO 15:15
PROVIDERS: ATTEND Internal Medicine Hematology & Oncology
DX: Z51.11 Encounter for antineoplastic chemotherapy (principal); C83.12 Mantle cell lymphoma, intrathoracic lymph nodes
CPT/HCPCS: 82962; 96367; 96413; J9034

== ENCOUNTER 2023-09-20 12:40 | Day surgery (SDC) | payer OTHER ==
[2023-09-20] MEDS: PEGFILGRASTIM-CBQV (UDENYCA) 6 MG/0.6 ML SYRINGE SQ ONE (13:45)
[2023-09-20 14:35] VITALS: BP 154/53; PULSE 63; RESP 18; TEMP 98
== END 2023-09-20 14:00 | disposition home or self-care (01) ==
LOC: JONCCHEMO 12:40 → J7W 14:20
PROVIDERS: ATTEND Internal Medicine Hematology & Oncology
PROC: 3E013GC Introduction of Other Therapeutic Substance into Subcutaneous Tissue, Percutaneous Approach (ICD-10-PCS; principal; 2023-09-20)
DX: C83.12 Mantle cell lymphoma, intrathoracic lymph nodes (principal); Z76.89 Persons encountering health services in other specified circumstances
CPT/HCPCS: 96372; Q5111

== ENCOUNTER 2023-11-01 09:20 | Day surgery (SDC) | payer OTHER ==
[2023-11-01] MEDS: SODIUM CHLORIDE 250 ML IV ONE (10:11)
[2023-11-01] MEDS: DEXAMETHASONE SODIUM PHOSPHATE 10 MG, DIPHENHYDRAMINE 25 MG in SODIUM CHLORIDE 100 ML IVPB ONE (10:11)
[2023-11-01] MEDS: BENDAMUSTINE HCL IVPB ONE (10:53)
[2023-11-01] MEDS: SODIUM CHLORIDE IVPB ONE (10:53)
[2023-11-01 12:42] VITALS: BP 147/61; PULSE 71; RESP 20; TEMP 98.2
[2023-11-01] MEDS ORDERED: PORTA CATH FLUSH 10 ML IVPUSH PRN (12:42)
== END 2023-11-01 11:40 | disposition home or self-care (01) ==
LOC: JONCCHEMO 09:20 → J7W 09:36 → JONCCHEMO 11:40
PROVIDERS: ATTEND Internal Medicine Hematology & Oncology
DX: Z51.11 Encounter for antineoplastic chemotherapy (principal); C82.90 Follicular lymphoma, unspecified, unspecified site
CPT/HCPCS: 36415; 83735; 96367; 96413; J9034

== ENCOUNTER 2023-11-02 12:10 | Day surgery (SDC) | payer OTHER ==
[2023-11-02] MEDS: PEGFILGRASTIM-CBQV (UDENYCA) 6 MG/0.6 ML SYRINGE SQ ONE (12:19)
[2023-11-02 16:43] VITALS: BP 127/70; PULSE 20; RESP 66; TEMP 98.2
== END 2023-11-02 12:30 | disposition home or self-care (01) ==
LOC: JONCCHEMO 12:10 → J7W 12:10 → JONCCHEMO 12:30
PROVIDERS: ATTEND Internal Medicine Hematology & Oncology
PROC: 3E033GC Introduction of Other Therapeutic Substance into Peripheral Vein, Percutaneous Approach (ICD-10-PCS; principal; 2023-11-02)
DX: C82.90 Follicular lymphoma, unspecified, unspecified site (principal); Z76.89 Persons encountering health services in other specified circumstances
CPT/HCPCS: 96365; Q5111

== ENCOUNTER 2023-12-06 10:10 | Day surgery (SDC) | payer OTHER ==
[~2023-12-06 10:10] MED LIST: ACETAMINOPHEN 325 MG TABLET (FP) PO ONE; BENDAMUSTINE HCL IVPB ONE; DEXAMETHASONE SODIUM PHOSPHATE 10 MG, DIPHENHYDRAMINE 25 MG in SODIUM CHLORIDE 100 ML IVPB ONE; DEXAMETHASONE SODIUM PHOSPHATE 10 MG, DIPHENHYDRAMINE 50 MG in SODIUM CHLORIDE 100 ML IVPB ONE; PALONOSETRON HCL 0.25 MG/5 ML VIAL IVPUSH ONE; SODIUM CHLORIDE 250 ML IV ONE; SODIUM CHLORIDE IVPB ONE
[2023-12-06 10:44] LABS: BASO % 0.6 % (0-2.0); EOS % 4.6 % (0-4.5); HEMATOCRIT 34.2 % (32.4-45.2); HEMOGLOBIN 10.8 GM/dL (10.7-15.3); LYMPH % 5.4 % (8-40); MCH 21.6 pg (25.7-33.7); MCHC 31.7 g/dl (32.0-36.0); MEAN CELL VOLUME 68.4 fl (80-96); MEAN PLT VOLUME 9.1 fl (7.5-11.1); MONO % 6.4 % (3.8-10.2); PLATELET COUNT 205 10^3/uL (134-434); RDW 16.6 % (11.6-15.6); WHITE BLOOD COUNT 7.4 K/mm3 (4.0-10.0)
[2023-12-06] MEDS: SODIUM CHLORIDE 250 ML IV ONE (10:46)
[2023-12-06 11:05] LABS: POTASSIUM 4.4 mmol/L (3.5-5.1)
[2023-12-06 11:07] LABS: MAGNESIUM 1.9 mg/dL (1.8-2.4)
[2023-12-06 11:09] LABS: ALBUMIN 3.9 g/dl (3.4-5.0); BLOOD UREA NITROGEN 20.9 mg/dL (7-18); CALCIUM 9.8 mg/dL (8.5-10.1)
[2023-12-06 11:13] LABS: TOT PROT 7.2 g/dl (6.4-8.2)
[2023-12-06 11:22] LABS: URIC ACID 3.5 mg/dL (2.6-7.2)
[2023-12-06] MEDS: DEXAMETHASONE SODIUM PHOSPHATE 10 MG, DIPHENHYDRAMINE 25 MG in SODIUM CHLORIDE 100 ML IVPB ONE (11:23)
[2023-12-06 11:45] LABS: ANISOCYTOSIS 0; MACROCYTOSIS 0; TEAR DROP CELLS 1+
[2023-12-06] MEDS: SODIUM CHLORIDE IVPB ONE (12:02)
[2023-12-06] MEDS: BENDAMUSTINE HCL IVPB ONE (12:02)
[2023-12-06] MEDS: PORTA CATH FLUSH 10 ML IVPUSH PRN (12:55)
[2023-12-06 14:20] VITALS: TEMP 98
[2023-12-06 14:30] VITALS: BP 118/56; PULSE 61; RESP 18
== END 2023-12-06 13:15 | disposition home or self-care (01) ==
LOC: JONCCHEMO 10:10 → J7W 10:19 → JONCCHEMO 13:15
PROVIDERS: ATTEND Internal Medicine Hematology & Oncology
DX: Z51.11 Encounter for antineoplastic chemotherapy (principal); C82.90 Follicular lymphoma, unspecified, unspecified site
CPT/HCPCS: 36415; 80053; 82962; 83615; 83735; 84100; 84550; 85025; J9034

== ENCOUNTER 2023-12-08 13:49 | Day surgery (SDC) | payer OTHER ==
[2023-12-08] MEDS: PEGFILGRASTIM-CBQV (UDENYCA) 6 MG/0.6 ML SYRINGE SQ ONE (14:01)
[2023-12-08 16:32] VITALS: BP 151/68; PULSE 68; RESP 20; TEMP 97.8
== END 2023-12-08 14:25 | disposition home or self-care (01) ==
LOC: JONCCHEMO 13:49 → J7W 13:50 → JONCCHEMO 14:25
PROVIDERS: ATTEND Internal Medicine Hematology & Oncology
PROC: 3E013GC Introduction of Other Therapeutic Substance into Subcutaneous Tissue, Percutaneous Approach (ICD-10-PCS; principal; 2023-12-08)
DX: C82.90 Follicular lymphoma, unspecified, unspecified site (principal); Z76.89 Persons encountering health services in other specified circumstances
CPT/HCPCS: Q5111

== ENCOUNTER 2024-02-07 10:09 | Day surgery (SDC) | payer OTHER ==
[2024-02-07] MEDS: SODIUM CHLORIDE 250 ML IV ONE (09:36)
[2024-02-07] MEDS: DEXAMETHASONE SODIUM PHOSPHATE 10 MG, DIPHENHYDRAMINE 25 MG in SODIUM CHLORIDE 100 ML IVPB ONE (09:37)
[2024-02-07] MEDS: SODIUM CHLORIDE IVPB ONE (10:10)
[2024-02-07] MEDS: BENDAMUSTINE HCL IVPB ONE (10:10)
[2024-02-07] MEDS: PORTA CATH FLUSH 10 ML IVPUSH PRN (11:14)
[2024-02-07 12:02] VITALS: BP 138/54; PULSE 72; RESP 20; TEMP 98.2
== END 2024-02-07 11:30 | disposition home or self-care (01) ==
LOC: J7W 10:09 → JONCCHEMO 10:09
PROVIDERS: ATTEND Internal Medicine Hematology & Oncology
DX: Z51.11 Encounter for antineoplastic chemotherapy (principal); C88.4 Extranodal marginal zone B-cell lymphoma of mucosa-associated lymphoid tissue [MALT-lymphoma]
CPT/HCPCS: 96367; 96413; J9034

== ENCOUNTER 2024-02-08 13:17 | Day surgery (SDC) | payer OTHER ==
[2024-02-08] MEDS: PEGFILGRASTIM-CBQV (UDENYCA) 6 MG/0.6 ML SYRINGE SQ ONE (13:29)
[2024-02-08 16:41] VITALS: BP 166/58; PULSE 71; RESP 20; TEMP 98.8
== END 2024-02-08 13:45 | disposition home or self-care (01) ==
LOC: JONCCHEMO 13:17 → J7W 13:17 → JONCCHEMO 13:45
PROVIDERS: ATTEND Internal Medicine Hematology & Oncology
PROC: 3E013GC Introduction of Other Therapeutic Substance into Subcutaneous Tissue, Percutaneous Approach (ICD-10-PCS; principal; 2024-02-08)
DX: C88.4 Extranodal marginal zone B-cell lymphoma of mucosa-associated lymphoid tissue [MALT-lymphoma] (principal); Z76.89 Persons encountering health services in other specified circumstances
CPT/HCPCS: 96372; Q5111